=== PATIENT | male | born 1940 | race Caucasian/White ===

== ENCOUNTER 2016-04-28 15:11 | Emergency (ER) | payer MEDICARE, OTHER ==
[2016-04-28 15:11] LABS: BASOPHILS 0.7 %; BASOPHILS ABSOLUTE 0.04 10/3/uL (0.0-0.16); EOSINOPHILS ABSOLUTE 0.12 10/3/uL (0.0-0.53); HEMATOCRIT 35.4 % (40.0-51.0); HEMOGLOBIN 11.2 g/dL (13.6-17.8); IMMATURE GRANULOCYTES 0.3 %; IMMATURE GRANULOCYTES ABSOLUTE 0.02 10/3/uL (0.0-0.11); LYMPHOCYTES ABSOLUTE 1.43 10/3/uL (0.67-4.30); MEAN CORPUS HGB CONC 31.6 g/dL (32.0-36.0); MEAN CORPUSCULAR HEMOGLOB 23.9 pg (26.0-34.0); MEAN CORPUSCULAR VOLUME 75.5 fL (80-100); MEAN PLATELET VOLUME 8.6 fL (9.2-13.0); MONOCYTES 12.1 %; MONOCYTES ABSOLUTE 0.72 10/3/uL (0.21-1.20); NEUTROPHILS 60.9 %; NEUTROPHILS ABSOLUTE 3.63 10/3/uL (2.02-8.40); RBC DISTRIBUTION WIDTH 19.7 % (12.0-16.0); RED CELL COUNT 4.69 10/6/uL (4.7-6.1)
[~2016-04-28 15:11] MED LIST: ASAB PO; BEN25 PO; C1 PO; CIPRO (10%) PO; COUMADIN6 MG PO; FISH-EPA1000 MG PO; FLORINEF0.1 MG PO; JANTOVEN PO; JANTOVEN1 MG PO; JANTOVEN4 MG PO; JANTOVEN5 MG PO; JANTOVEN6 MG PO; KDUR20 PO; KLOR-CON 1010 MEQ PO; KLOR-CON M2020 MEQ PO; LEVOTHYROXIN88 MCG PO; LORT7 PO; MAGOX4 PO; MOBIC15 MG PO; NEXIUM40 PO; PERCOCET1 TA2 PO; PREV30 PO; REST15 PO; RYTHMOL SR225 MG PO; RYTHMOL225 MG PO; RYTHMOL300 MG PO; SONATA PO; ZOCOR20 PO; ZOFRAN4 PO
[2016-04-28 15:13] LABS: ER CBC TAT 0 Hrs 05 MinsNP; MANUAL DIFF NO %; PLATELET COUNT 336 10/3/uL (150-400)
[2016-04-28 15:26] LABS: CALCIUM, SERUM 8.9 MG/DL (8.5-10.4); CHLORIDE, SERUM 101 MMOL/L (96-112); CO2 (CARBON DIOXIDE) 28 MMOL/L (24-34); CREATININE 0.93 MG/DL (0.70-1.30); GFR AFRICAN AMERICAN 94 ML/MIN (>=60); GFR NON AFRICAN AMERICAN 81 ML/MIN (>=60); GLUCOSE, SERUM 104 MG/DL (60-99); POTASSIUM, SERUM 4.7 MMOL/L (3.5-5.3); SGOT(AST) 21 U/L (5-40); SGPT(ALT) 26 U/L (5-65); SODIUM, SERUM 138 MMOL/L (135-148); TOTAL BILIRUBIN 0.6 MG/DL (0-1.2); TOTAL PROTEIN 7.7 G/DL (6.0-8.5)
[2016-04-28 15:27] LABS: A/G RATIO 0.6 (0.7-1.9); ALBUMIN 2.9 G/DL (3.5-5.0); ALKALINE PHOSPHATASE 85 U/L (45-117); BUN (BLOOD UREA NITROGEN) 11 MG/DL (6-23); GLOBULIN 4.8 G/DL (2.5-4.1)
[2016-04-28 16:05] LABS: LACTATE 0.8 MMOL/L (0.3-2.4)
[2016-04-28 17:09] LABS: ASCORBIC ACID (UR NOT ORDER) NEG (NEG); BILIRUBIN, URINE NEGATIVE (NEG); ER URINALYSIS TAT 0 Hrs 07 Mins; KETONE, URINE NEGATIVE (NEG); LEUKOCYTE ESTERASE(NOT OR NEG (NEG); NITRITE (URINE) NEG (NEG); WBC (NOT ORDERED) (RFLEX) 4 (0-5)
[2016-06-07] MEDS ORDERED: ROXICODONE IR PO (11:25)
== END 2016-04-28 17:40 | disposition home or self-care (01) ==
LOC: ER 15:11
PROVIDERS: Nurse Practitioner
DX: M54.9 Dorsalgia, unspecified (principal); I48.91 Unspecified atrial fibrillation; Z88.8 Allergy status to other drugs, medicaments and biological substances; Z79.899 Other long term (current) drug therapy; Z79.82 Long term (current) use of aspirin
CPT/HCPCS: 74176; 80053; 81001; 83605; 83690; 85025; 87040; 99284; A9270-GY

== ENCOUNTER 2016-05-16 23:00 | Inpatient (IN) | payer MEDICARE, OTHER ==
--- NOTE | ~2016-05-16 | CN ---
Consultation Report [facility] [address] [place]. [address] NAME: MAGGIE REDMAN : 44 STATUS : ADM IN PAT#: [id number] AGE: 75 ADM/REG DATE : 05/17/16 MR#: [id number] REPORT SERV DATE: 05/17/16 DICTATED BY: NIELS CARPENTER DATE: 05/17/16 REPORT STATUS : Draft TRANSCRIBED BY: MODL DATE: 05/17/16 INFECTIOUS DISEASE CONSULT DATE OF CONSULTATION: REASON FOR REFERRAL: Evaluation and treatment of spinal osteomyelitis/discitis. HISTORY OF PRESENT ILLNESS: The patient is a 75-year-old male. He has a history of atrial fibrillation, benign prostatic hypertrophy. He had a carcinoid tumor diagnosed in 2006, underwent partial gastrectomy, and small bowel resection. That surgery was complicated later by incisional hernias that required extensive surgery to repair several years ago but has been stable the patient says for the last 4 years without any signs of infection. He also has obstructive sleep apnea and hypothyroidism. About 6 weeks ago, he developed some discomfort in his back and fevers to 103-104 degrees. He was seen by Dr. Wayne who happens to be his neighbor and found to have urinary tract infection with E. coli. He received antibiotics for that and improved and the fever resolved and has never gone that high again. He continued though whenever he was off antibiotics to have pain, dysuria, and received several more courses of antibiotics. After several weeks of pain began to focus in his thoracic spine area became increasingly severe so that Dr. Wayne ordered an MRI of his spine last week which revealed changes in the T8-T9 level suspicious for discitis and osteomyelitis with soft tissue paravertebral thickening. He was discussed by phone with Infectious Disease at the end of last week and it was recommended that oral antibiotics be stopped and that was done on , 05/12. He was scheduled to see me in the office yesterday to arrange a biopsy off antibiotics but there was some misunderstanding about the appointment and he decided to come to the emergency room anyway where he was given doses of vancomycin and Zosyn. He is not febrile, above 99 at present. White blood cell count is normal. He has some mild increased urinary frequency and change in the smell of his urine but no earl dysuria. No blood in his urine. He has not had any signs or symptoms of infection elsewhere in recent months. There have been no skin lesions or boils. No respiratory infections. No gastrointestinal infections. [place] [facility]. He has not traveled. No unusual animal exposure, travel or other unusual environmental exposures. PAST MEDICAL HISTORY: Otherwise unremarkable. MEDICATIONS: He has received several course of antibiotics. Most recently, cefuroxime and then received vancomycin and Zosyn in the emergency room last night. ALLERGIES: HE HAS NO KNOWN ANTIMICROBIAL ALLERGIES. 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 HE DOES NOT SMOKE. HAS NO HISTORY OF ALCOHOL OR SUBSTANCE ABUSE. HE IS . FAMILY HISTORY: Coronary artery disease in both parents. Consultation Report [address] [place]. [address] NAME: MAGGIE REDMAN : 44 STATUS : ADM IN [facility]#: [id number] AGE: 75 ADM/REG DATE : 05/17/16 MR#: [id number] REPORT SERV DATE: 05/17/16 DICTATED BY: NIELS CARPENTER DATE: 05/17/16 REPORT STATUS : Draft TRANSCRIBED BY: LUIS ENRIQUE DATE: 05/17/16 PHYSICAL EXAMINATION: GENERAL: Nontoxic, elderly male, in no acute distress. He is alert and oriented x3. VITAL SIGNS: His temperature is 98.3, pulse 61, respirations 16, blood pressure 126/62, weight 102 kg. HEENT: Sclerae are clear. No oral lesions. NECK: Supple. LUNGS: Clear. HEART: Irregular. ABDOMEN: Soft, nontender. Positive bowel sounds. Wounds there are well healed. No masses other than some fullness from scar tissue in the upper part of the abdomen from the hernia repair. EXTREMITIES: Without clubbing, cyanosis, or edema. No swollen, red, or hot joints. No skin lesions or rashes. LABORATORY DATA: White blood cell count 7.4, hematocrit 37.9, platelets 259. His BUN and creatinine 12 and 0.94. Liver function tests within normal limits except alkaline phosphatase slightly high at 119. His procalcitonin 0.10 and urinalysis shows large leukocyte esterase, greater than 182 white blood cells. Culture of blood and urine are pending. IMPRESSION: 1. 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 2. Recurrent urinary tract infection probably related to prostate disease. RECOMMENDATIONS: 1. Hold antibiotics at the moment to increase the yield of biopsy unless he begins to spike fevers or becomes toxic appearing, at which point, we will have to restart them. 2. Schedule by tomorrow if possible a CT-guided biopsy. He is on Coumadin for his atrial fibrillation. Finally, I will follow the patient with you. I appreciate very much your consulting on this patient. CHEMA/LUIS ENRIQUE Niels Carpenter M.D. / [id number] CC: MD Melanie Streeter M.D. Consultation Report [address] [place]. [address] NAME: MAGGIE REDMAN : 44 STATUS : ADM IN PAT#: [id number] AGE: 75 ADM/REG DATE : 05/17/16 MR#: [id number] REPORT SERV DATE: 05/17/16 DICTATED BY: NIELS CARPENTER DATE: 05/17/16 REPORT STATUS : Draft TRANSCRIBED BY: LUIS ENRIQUE DATE: 05/17/16 Hermelindo Wayne Jr., M.D.
--- NOTE | ~2016-05-16 | DS ---
Discharge Summary [place] [address] [address] NAME: MAGGIE REDMAN : 42 STATUS : DIS IN PAT#: [id number] AGE: 75 ADM/REG DATE : 05/17/16 MR#: [id number] REPORT SERV DATE: 07/14/16 DICTATED BY: DATE: REPORT STATUS : Draft TRANSCRIBED BY: MODL DATE: 07/13/16 ADMISSION DATE: 05/17/2016 DISCHARGE DATE: 05/23/2016 Please see interim discharge summary dictated on 05/22/2016, job #[id number]. Addendum: The patient's discharge was not accomplished until 05/23/2016 due to inability to be able to obtain his home antibiotics for his E. coli bacteremia and his spinal osteomyelitis as well as his recurrent UTI. [facility]/SAQIB[facility] Zeina Singh NP / [id number] CC: MD Melanie Guevara M.D.
--- NOTE | ~2016-05-16 | IDS ---
Interim Discharge Summary [facility] [address] [place]. [address] NAME: MAGGIE REDMAN : 44 STATUS : DIS IN PAT#: [id number] AGE: 75 ADM/REG DATE : 05/17/16 MR#: [id number] REPORT SERV DATE: 05/24/16 DICTATED BY: DATE: REPORT STATUS : Draft TRANSCRIBED BY: MODL DATE: 05/22/16 ADMISSION DATE: 05/17/2016 DISCHARGE DATE: DIAGNOSES: Current interim discharge diagnoses list includes, 1. Spinal osteomyelitis/diskitis. 2. Recurrent urinary tract infection with Escherichia coli. 3. Intractable back pain. 4. Depression. 5. Debility/generalized weakness. 6. Atrial fibrillation. 7. History of deep venous thrombosis. 8. Escherichia coli bacteremia. 9. Cachexia. 10.Hypoalbuminemia. HISTORY OF PRESENT ILLNESS: This is a pleasant 75-year-old gentleman who presented to the ER with complaint of worsening back pain as well as difficulty urinating. The patient has had multiple recurrent episodes of urinary tract infections and been on multiple antibiotics that has been managed as an outpatient through Dr. Wayne's office. The patient developed severe thoracic back pain, which the patient did not relate to his urinary tract infections. Please see initial H and P by Dr. Bobby Rodriguez. PROCEDURES AND IMAGIN. 05/16/2016 CT of the abdomen and pelvis without contrast showed new irregularity and disrupted vertebral endplate cortical margins and significant interval increase in paravertebral soft tissue thickening at the T8-T9 level highly suspicious for diskitis, osteomized pattern. 2. Subsegmental atelectasis in both lung bases. 3. 05/16/2016, portable chest x-ray showed low lung volumes with bibasilar atelectasis and no acute cardiopulmonary abnormality. 4. On 05/19/2016, the patient had a CT-guided biopsy of T8-T9 soft tissue lesion in Interventional Radiology. CONTINUATION OF HOSPITAL COURSE: Consultants during this time have been Dr. Enio Zhang and Interventional Radiology was Dr. Sprague. The patient has come back with E. coli in his urine as well as his back and has one positive blood culture. The patient has been having intractable back pain for which he is receiving ketorolac as well as p.r.n. pain medications. We have encouraged the patient to increase his out of bed activity. The patient finds extremely painful to sit in the chair despite padding and spends most of his time in the bed. This has been discussed with the patient as well as the patient's depressed affect. The patient desires no medications for this at this time. He lays in bed with the TV off and his blinds drawn. The patient has generalized weakness and debility and PT and OT have been asked to evaluate and treat him. The patient has intermittent AFib for which he is on Coumadin. His Coumadin had to be stopped prior to having his biopsy and a unit of FFP had to be given to try to reduce his INR. His subsequent INR was 1.6. The Interim Discharge Summary [facility] [address] [place] [place]. [address] NAME: MAGGIE REDMAN : 44 STATUS : DIS IN PAT#: [id number] AGE: 75 ADM/REG DATE : 05/17/16 MR#: [id number] REPORT SERV DATE: 05/24/16 DICTATED BY: DATE: REPORT STATUS : Draft TRANSCRIBED BY: MODL DATE: 05/22/16 patient has received Coumadin 5 mg for the last two nights and his current INR today is 1.7. The patient has been started on Megace due to his poor appetite. The patient refuses his Ensure or any other liquid supplement that his family might bring in. The patient has been encouraged to eat peanut butter and I have changed him to a high-protein diet. Dr. Zhang has add the patient on ceftriaxone until today when he has changed him to IV Merrem. The patient's most recent labs sodium is 137, potassium is 3.8, chloride is 102, BUN is 13, creatinine is 0.74, GFR is 92, glucose is 95. Calcium is 9.3, magnesium is 1.9. WBC is 5.7, hemoglobin 10.3, hematocrit 30.5, platelets are 217. INR is 1.7. ADDENDUM: The patient will be discharged home on ertapenem per Infectious Disease's for his E coli bacteremia and spinal osteomyelitis as well as recurrent UTI. The patient is being given a prescription for Megace 625 mg p.o. as well as [place] 7.5/325 mg q.4 hours p.r.n. x2 days. Additional prescriptions being given for Florastor one b.i.d. and the patient is to follow up for PCP for pain control within the next two days. The patient will also be following up with Dr. Zhang on 06/06/2016 or 06/07/2016. It was extensively discussed with the patient about the possible onset of depression due to his chronic pain, patient refused psych consult here. Symptoms of impending depression were reviewed with the patient and the patient promised to discuss with PCP at first appointment. Approximately 40 minutes has been spent compiling discharge summary as well as [id number] encounter with the patient and summarization of the discharge. [facility]/MODL Zeina Singh NP / [id number] / [id number] CC: Brandon Pacheco MD
--- NOTE | ~2016-05-16 | HP ---
History And Physical [place] [id number] [facility] [place]. [address] NAME: MAGGIE LAUREN : 42 STATUS : ADM IN PAT#: [id number] AGE: 75 ADM/REG DATE : 05/17/16 MR#: [id number] REPORT SERV DATE: 05/17/16 DICTATED BY: KENYETTA FERNANDES DATE: 05/17/16 REPORT STATUS : Draft TRANSCRIBED BY: MODL DATE: 05/17/16 DATE OF ADMISSION: 05/16/2016 POINT OF ENTRY: [facility] Emergency Department. PRIMARY CARE PHYSICIAN: Melanie Raygoza M.D. PRIMARY UROLOGIST: Hermelindo Wayne M.D. CHIEF COMPLAINT: Worsening back pain as well as dysuria. HISTORY OF PRESENT ILLNESS: Mr. Lauren is a 75-year-old gentleman with a history of atrial fibrillation on Coumadin and anticoagulation as well as BPH, who presents to the emergency today with reports of worsening lower back pain with associated dysuria. The patient states that over the last six weeks, he has had recurrent episodes of urinary tract infections and placed on multiple courses of antibiotics. This was mainly being managed as an outpatient through Dr. Wayne's office. About four weeks ago, he started to develop severe thoracic level back pain, which initially I think was felt to be secondary to urinary tract infections. The patient has multiple CT scans of the abdomen and pelvis in our system over the last month all of which were unremarkable for source of his back pain, but was notable for some BPH as well as cholelithiasis. The patient reportedly underwent gallbladder imaging through Dr. Carmina good, which again showed cholelithiasis with no indication for need for surgical resection or cholecystitis. Given persistent back pain as well as fevers, despite multiple courses of oral antibiotics for presumed urinary tract infection, the patient underwent MRI of the spine at an outpatient center, presumed to be [facility] [place]. That reportedly showed an infection of the spine, details of which are unknown to me. Dr. Wayne reportedly consulted with Dr. Austin of Infectious Disease and it was felt that the patient needed to be off antibiotics for few days prior to scheduling of a CT-guided biopsy. The patient states he has been off antibiotics since middle of last week as instructed by Dr. Wayne, but has not been taken off his Coumadin. The family is under the understanding that he was to have his CT-guided biopsy today; however, no formal appointment was scheduled and when they tried to reach with Dr. Wayne as well as Dr. Austin, they were not able to reach both of them as they reportedly were both on vacation or out of town. Given his worsening pain and inability to reach any of his primary doctors, he presented to the emergency department. Family states he had some very high spiking fevers of 103-104 degrees Fahrenheit about greater than one week ago, but over the last week, he has had much milder fevers approximately 99-100 degrees Fahrenheit. He describes burning with urination as well as odor as well as the above-mentioned back pain. The patient also describes some subjective weakness of his lower extremities as well as some difficulty walking and standing up completely straight secondary to the pain as well as weakness. He denies any urinary or bowel incontinence or loss of sensation of his lower extremities. Initial evaluation in the emergency department for CT scan of the abdomen and pelvis showed History And Physical [address] [address] NAME: MAGGIE LAUREN : 44 STATUS : ADM IN [facility] WITH [facility]#: [id number] AGE: 75 ADM/REG DATE : 05/17/16 MR#: [id number] REPORT SERV DATE: 05/17/16 DICTATED BY: KENYETTA FERNANDES DATE: 05/17/16 REPORT STATUS : Draft TRANSCRIBED BY: LUIS ENRIQUE DATE: 05/17/16 new irregularity and disrupted vertebral endplate cortical margins as well as some paravertebral soft tissue thickening concerning for diskitis versus osteomyelitis. Labs otherwise unremarkable except for an INR of 2.3 and urinalysis consistent with urinary tract infection. The patient was subsequently admitted to the Hospitalist Service for further evaluation and management. REVIEW OF SYSTEMS: Comprehensive review of systems otherwise negative unless listed in history of present illness. PREVIOUS MEDICAL HISTORY: 1. Carcinoid tumor, status post partial gastric and small-bowel resection. 2. Ventral incisional hernia, status post repair. 3. Obstructive sleep apnea, noncompliant with CPAP therapy. 4. Hypothyroidism. 5. Atrial fibrillation on Coumadin. 6. Remote history of DVT on Coumadin. 7. BPH. 8. Symptomatic cholelithiasis. 9. Coronary atherosclerosis per CT imaging. PAST SURGICAL HISTORY: 1. Partial gastric and small bowel resection for carcinoid tumor. 2. Ventral incisional hernia repair x3. ALLERGIES: LIDOCAINE, MORPHINE, AND PROCAINE. HOME MEDICATIONS: 1. Aspirin 81 mg daily. 2. Nexium 20 mg daily. 3. Ketorolac 10 mg every six hours p.r.n. 4. Levothyroxine 88 mcg daily. 5. Lidocaine topical patch daily p.r.n. 6. Magnesium oxide 400 mg b.i.d. 7. Potassium chloride 10 mEq b.i.d. 8. Rythmol 225 mg t.i.d. 9. Simvastatin 20 mg at bedtime. 10.Flomax 0.4 mg daily. 11.Temazepam 15 mg at bedtime. 12.Ultram 50 mg every six hours. 13.Jantoven 5 mg q.p.m. SOCIAL HISTORY: Denies any tobacco, alcohol, or illicits. FAMILY HISTORY: Both parents had coronary artery disease. Sibling with history of cancer, type unknown. History And Physical [address] [address] NAME: MAGGIE LAUREN : 42 STATUS : ADM IN [facility] WITH [facility]#: [id number] AGE: 75 ADM/REG DATE : 05/17/16 MR#: [id number] REPORT SERV DATE: 05/17/16 DICTATED BY: KENYETTA FERNANDES DATE: 05/17/16 REPORT STATUS : Draft TRANSCRIBED BY: LUIS ENRIQUE DATE: 05/17/16 LABS AND IMAGIN. White count 7.4, hemoglobin 12.8, hematocrit 37.9, platelets 259. INR is 2.3. MCV 74.3. 2. Sodium is 131, potassium 4.6, chloride 94, carbon dioxide 28, BUN 12, creatinine 0.94, glucose is 103, calcium is 9.0, protein is 7.9, albumin is 2.8, bili is 0.5. ALT is 20, AST 21, alk phos is 119. 3. Lipase is 111. 4. Lactic acid 0.9. 5. Urinalysis: Specific gravity 1.016 hazy with large leukocyte esterase, positive nitrites, 9 red and greater than 182 white blood cells per high-powered field. 6. Chest x-ray per my review shows no acute cardiopulmonary abnormality. 7. CT scan of the abdomen and pelvis shows a new irregularity and disrupted vertebral endplate cortical margins as well as paravertebral soft tissue thickening in the T8-T9 level concerning for osteomyelitis versus diskitis. PHYSICAL EXAMINATION: VITAL SIGNS: Temperature is 98.2 degrees Fahrenheit, pulse is 70, respirations 16, satting 96% on room air, blood pressure is 116/68. On recheck, blood pressure is now 120/68. GENERAL: The patient is awake, alert, in no acute distress. Resting comfortably in bed. He is a well-developed, well-nourished, elderly male. HEENT: Atraumatic and normocephalic. Moist mucous membranes. Pupils are equal, round, reactive to light and accommodation. Extraocular movements intact. No scleral icterus. NECK: No jugular venous distention. No carotid bruits. CARDIAC: Regular rate and rhythm. No murmurs, rubs, or gallops. Normal S1, S2. LUNGS: Clear to auscultation bilaterally. No wheezes, rhonchi, or crackles. ABDOMEN: Obese, soft, nontender, nondistended. Good bowel sounds. No rebound, guarding, or rigidity. EXTREMITIES: Warm and perfused. No cyanosis, clubbing, or edema. MUSCULOSKELETAL: The patient is mildly tender to palpation over the spinous processes as well as paravertebral regions of his mid upper thoracic region. No palpable fluid collections appreciated. SKIN: Warm and dry except for noted above. PSYCHIATRIC: Affect appropriate. NEUROLOGIC: Alert and oriented x3. Cranial nerves II through XII grossly intact. Speech is normal. Gait not assessed. The patient has a 4/5 strength at bilateral lower extremities with intact sensation. I think his strength is primarily limited by pain. ASSESSMENT AND PLAN: Mr. Lauren is a 75-year-old gentleman with a recent diagnosis as an outpatient of spinal osteomyelitis versus diskitis, who is currently on antibiotic holiday in anticipation of an outpatient CT-guided biopsy, who presents with worsening pain as well as weakness and concern for recurrent urinary tract infection. PROBLEM LIST: 1. Recurrent urinary tract infection. 2. Spinal thoracic osteomyelitis versus diskitis. 3. Intractable back pain. 4. History of AFib and DVT on Coumadin. History And Physical [address] [address] NAME: MAGGIE LAUREN : 44 STATUS : ADM IN [facility] WITH [facility]#: [id number] AGE: 75 ADM/REG DATE : 05/17/16 MR#: [id number] REPORT SERV DATE: 05/17/16 DICTATED BY: KENYETTA FERNANDES DATE: 05/17/16 REPORT STATUS : Draft TRANSCRIBED BY: MODAnna Marie DATE: 05/17/16 PLAN: 1. Spinal thoracic osteomyelitis versus diskitis. We will consult Dr. Austin of Infectious Disease for assistance. It appears that he is already familiar with the case through Dr. Wayne. We will try to obtain the MRI results from [facility] that was obtained less than a week ago and as such, we will defer on repeat MRI imaging at this time. Given reports of worsening pain and weakness, the new CT findings compared to the prior CT as well as reports of fevers over the past week, I will empirically place the patient on antibiotics of vancomycin and Zosyn and defer further antibiotic management to Infectious Disease. There does not appear to be any neurologic compromise both the imaging or on clinical exam at this time. 2. Recurrent urinary tract infection. We will place the patient on IV antibiotics. Follow up urine culture. Of note, he does have some E. coli urine cultures from earlier this year that appears to have intermittent resistance to Unasyn as well as some resistance to other antibiotics. So therefore, we will place the patient on Zosyn at this time. 3. Back pain. Continue the patient's home tramadol as well as lidocaine topical patch. Place the patient on some low-dose Dilaudid for pain control. 4. History of DVT and AFib on Coumadin. The patient's DVT was many years ago. It appears that his AFib is for stroke, risk reduction for his AFib. We will hold his Coumadin overnight in anticipation of possible CT-guided biopsy in the next few days. 5. DVT prophylaxis. The patient is currently therapeutically anticoagulated. CODE STATUS: The patient wished to be full code. JCB/LUIS ENRIQUE Kenyetta Fernandes MD / [id number] CC: Tim Sanders Jr., M.D.
[2016-05-16 23:41] LABS: BASOPHILS 0.1 %; BASOPHILS ABSOLUTE 0.01 10/3/uL (0.0-0.16); EOSINOPHILS 0.7 %; EOSINOPHILS ABSOLUTE 0.05 10/3/uL (0.0-0.53); ER CBC TAT 0 Hrs 05 Mins; HEMATOCRIT 37.9 % (40.0-51.0); HEMOGLOBIN 12.8 g/dL (13.6-17.8); IMMATURE GRANULOCYTES 0.7 %; IMMATURE GRANULOCYTES ABSOLUTE 0.05 10/3/uL (0.0-0.11); LYMPHOCYTES 16.7 %; LYMPHOCYTES ABSOLUTE 1.23 10/3/uL (0.67-4.30); MEAN CORPUSCULAR HEMOGLOB 25.1 pg (26.0-34.0); MEAN CORPUSCULAR VOLUME 74.3 fL (80-100); MEAN PLATELET VOLUME 8.2 fL (9.2-13.0); MONOCYTES 9.9 %; MONOCYTES ABSOLUTE 0.73 10/3/uL (0.21-1.20); NEUTROPHILS 71.9 %; NEUTROPHILS ABSOLUTE 5.31 10/3/uL (2.02-8.40); PLATELET COUNT 259 10/3/uL (150-400); RBC DISTRIBUTION WIDTH 17.8 % (12.0-16.0); WHITE BLOOD CELLS 7.4 10/3/uL (4.5-10.5)
[2016-05-16 23:44] LABS: ASCORBIC ACID (UR NOT ORDER) NEG (NEG); BILIRUBIN, URINE NEGATIVE (NEG); ER URINALYSIS TAT 0 Hrs 00 Mins; KETONE, URINE NEGATIVE (NEG); LEUKOCYTE ESTERASE(NOT OR LARGE (NEG)
[2016-05-16 23:47] LABS: NITRITE (URINE) POS (NEG); WBC (NOT ORDERED) (RFLEX) > 182 (0-5)
[2016-05-16 23:48] LABS: MANUAL DIFF NO %; MEAN CORPUS HGB CONC 33.8 g/dL (32.0-36.0)
[2016-05-16 23:55] LABS: A/G RATIO 0.5 (0.7-1.9); ALBUMIN 2.8 G/DL (3.5-5.0); BUN (BLOOD UREA NITROGEN) 12 MG/DL (6-23); CHLORIDE, SERUM 94 MMOL/L (96-112); CO2 (CARBON DIOXIDE) 28 MMOL/L (24-34); CREATININE 0.94 MG/DL (0.70-1.30); GFR AFRICAN AMERICAN 93 ML/MIN (>=60); GFR NON AFRICAN AMERICAN 80 ML/MIN (>=60); GLOBULIN 5.1 G/DL (2.5-4.1); GLUCOSE, SERUM 103 MG/DL (60-99); INTERNATIONAL NORMAL RATI 2.3 UNITS (-); PARTIAL THROMBO TIME 55.9 SEC (22.5-37.2); POTASSIUM, SERUM 4.6 MMOL/L (3.5-5.3); SGOT(AST) 21 U/L (5-40); SGPT(ALT) 28 U/L (5-65); TOTAL BILIRUBIN 0.5 MG/DL (0-1.2); TOTAL PROTEIN 7.9 G/DL (6.0-8.5)
[2016-05-16 23:56] LABS: ALKALINE PHOSPHATASE 119 U/L (45-117); PROTIME (NOT ORD) 24.9 SEC (12.0-14.5); SODIUM, SERUM 131 MMOL/L (135-148)
[2016-05-17 00:07] LABS: LACTATE 0.9 MMOL/L (0.3-2.4)
[2016-05-17] MEDS ORDERED: JANTOVEN5 MG PO (01:37)
[2016-05-17] MEDS ORDERED: RYTHMOL225 MG PO (01:38)
[2016-05-17] MEDS ORDERED: SYN88 PO (01:38)
[2016-05-17] MEDS ORDERED: ZOCOR20 PO (01:39)
[2016-05-17] MEDS ORDERED: MAGOX4 PO (01:40)
[2016-05-17] MEDS ORDERED: KDUR10 PO (01:42)
[2016-05-17] MEDS ORDERED: NEXIUM20 M1 PO (01:43)
[2016-05-17] MEDS ORDERED: ASAB PO (01:43)
[2016-05-17] MEDS ORDERED: REST15 PO (01:43)
[2016-05-17] MEDS ORDERED: TORATAB PO (01:46)
[2016-05-17] MEDS ORDERED: LIDODERM TOP (01:47)
[2016-05-17] MEDS ORDERED: ULTRAM50 PO (01:47)
[2016-05-17] MEDS ORDERED: FLOMAX4 PO (01:49)
[2016-05-17 08:11] LABS: C-REACTIVE PROTEIN 36.8 MG/L (<8.0)
[2016-05-18 06:06] LABS: BASOPHILS 0.3 %; BASOPHILS ABSOLUTE 0.02 10/3/uL (0.0-0.16); EOSINOPHILS 1.3 %; HEMATOCRIT 35.9 % (40.0-51.0); HEMOGLOBIN 11.6 g/dL (13.6-17.8); IMMATURE GRANULOCYTES 0.5 %; IMMATURE GRANULOCYTES ABSOLUTE 0.04 10/3/uL (0.0-0.11); LYMPHOCYTES 14.8 %; LYMPHOCYTES ABSOLUTE 1.18 10/3/uL (0.67-4.30); MANUAL DIFF NO %; MEAN CORPUS HGB CONC 32.3 g/dL (32.0-36.0); MEAN CORPUSCULAR HEMOGLOB 24.4 pg (26.0-34.0); MEAN CORPUSCULAR VOLUME 75.6 fL (80-100); MEAN PLATELET VOLUME 8.4 fL (9.2-13.0); MONOCYTES 9.4 %; MONOCYTES ABSOLUTE 0.75 10/3/uL (0.21-1.20); NEUTROPHILS 73.7 %; NEUTROPHILS ABSOLUTE 5.89 10/3/uL (2.02-8.40); PLATELET COUNT 247 10/3/uL (150-400); RED CELL COUNT 4.75 10/6/uL (4.7-6.1)
[2016-05-18 06:11] LABS: PROTIME (NOT ORD) 22.7 SEC (12.0-14.5)
[2016-05-18 06:19] LABS: BUN (BLOOD UREA NITROGEN) 12 MG/DL (6-23); CHLORIDE, SERUM 95 MMOL/L (96-112); CO2 (CARBON DIOXIDE) 28 MMOL/L (24-34); CREATININE 0.86 MG/DL (0.70-1.30); GFR AFRICAN AMERICAN 100 ML/MIN (>=60); GFR NON AFRICAN AMERICAN 86 ML/MIN (>=60); POTASSIUM, SERUM 4.4 MMOL/L (3.5-5.3); SODIUM, SERUM 132 MMOL/L (135-148)
[2016-05-18 06:20] LABS: GLUCOSE, SERUM 78 MG/DL (60-99)
[2016-05-18 13:10] LABS: INTERNATIONAL NORMAL RATI 1.8 UNITS (-); PROTIME (NOT ORD) 20.5 SEC (12.0-14.5)
[2016-05-19 05:12] LABS: BASOPHILS 0.3 %; BASOPHILS ABSOLUTE 0.02 10/3/uL (0.0-0.16); EOSINOPHILS 0.5 %; EOSINOPHILS ABSOLUTE 0.04 10/3/uL (0.0-0.53); HEMATOCRIT 32.9 % (40.0-51.0); HEMOGLOBIN 10.8 g/dL (13.6-17.8); IMMATURE GRANULOCYTES 0.4 %; IMMATURE GRANULOCYTES ABSOLUTE 0.03 10/3/uL (0.0-0.11); LYMPHOCYTES 17.1 %; LYMPHOCYTES ABSOLUTE 1.27 10/3/uL (0.67-4.30); MEAN CORPUS HGB CONC 32.8 g/dL (32.0-36.0); MEAN CORPUSCULAR HEMOGLOB 24.3 pg (26.0-34.0); MEAN CORPUSCULAR VOLUME 74.1 fL (80-100); MEAN PLATELET VOLUME 8.2 fL (9.2-13.0); MONOCYTES 10.1 %; MONOCYTES ABSOLUTE 0.75 10/3/uL (0.21-1.20); NEUTROPHILS 71.6 %; PLATELET COUNT 212 10/3/uL (150-400); RBC DISTRIBUTION WIDTH 17.9 % (12.0-16.0); RED CELL COUNT 4.44 10/6/uL (4.7-6.1); WHITE BLOOD CELLS 7.4 10/3/uL (4.5-10.5)
[2016-05-19 05:15] LABS: MANUAL DIFF NO %
[2016-05-19 05:26] LABS: BUN (BLOOD UREA NITROGEN) 14 MG/DL (6-23); CHLORIDE, SERUM 94 MMOL/L (96-112); CREATININE 0.83 MG/DL (0.70-1.30); GFR AFRICAN AMERICAN 101 ML/MIN (>=60); GFR NON AFRICAN AMERICAN 87 ML/MIN (>=60); GLUCOSE, SERUM 92 MG/DL (60-99); POTASSIUM, SERUM 3.9 MMOL/L (3.5-5.3); SODIUM, SERUM 129 MMOL/L (135-148)
[2016-05-19 05:27] LABS: CO2 (CARBON DIOXIDE) 23 MMOL/L (24-34)
[2016-05-19 05:31] LABS: INTERNATIONAL NORMAL RATI 1.6 UNITS (-)
[2016-05-20 04:50] LABS: BASOPHILS 0.3 %; BASOPHILS ABSOLUTE 0.02 10/3/uL (0.0-0.16); EOSINOPHILS ABSOLUTE 0.06 10/3/uL (0.0-0.53); HEMATOCRIT 31.4 % (40.0-51.0); HEMOGLOBIN 10.6 g/dL (13.6-17.8); IMMATURE GRANULOCYTES 0.5 %; IMMATURE GRANULOCYTES ABSOLUTE 0.03 10/3/uL (0.0-0.11); LYMPHOCYTES 22.4 %; LYMPHOCYTES ABSOLUTE 1.29 10/3/uL (0.67-4.30); MEAN CORPUS HGB CONC 33.8 g/dL (32.0-36.0); MEAN CORPUSCULAR HEMOGLOB 25.4 pg (26.0-34.0); MEAN CORPUSCULAR VOLUME 75.3 fL (80-100); MEAN PLATELET VOLUME 8.2 fL (9.2-13.0); MONOCYTES 13.4 %; MONOCYTES ABSOLUTE 0.77 10/3/uL (0.21-1.20); NEUTROPHILS 62.4 %; NEUTROPHILS ABSOLUTE 3.58 10/3/uL (2.02-8.40); PLATELET COUNT 214 10/3/uL (150-400); RBC DISTRIBUTION WIDTH 18.1 % (12.0-16.0); RED CELL COUNT 4.17 10/6/uL (4.7-6.1); WHITE BLOOD CELLS 5.8 10/3/uL (4.5-10.5)
[2016-05-20 04:51] LABS: MANUAL DIFF NO %
[2016-05-20 04:56] LABS: INTERNATIONAL NORMAL RATI 1.5 UNITS (-); PROTIME (NOT ORD) 18.4 SEC (12.0-14.5)
[2016-05-20 05:00] LABS: BUN (BLOOD UREA NITROGEN) 15 MG/DL (6-23); CHLORIDE, SERUM 97 MMOL/L (96-112); CO2 (CARBON DIOXIDE) 27 MMOL/L (24-34); CREATININE 0.86 MG/DL (0.70-1.30); GFR AFRICAN AMERICAN 100 ML/MIN (>=60); GFR NON AFRICAN AMERICAN 86 ML/MIN (>=60); GLUCOSE, SERUM 87 MG/DL (60-99); POTASSIUM, SERUM 3.8 MMOL/L (3.5-5.3); SODIUM, SERUM 133 MMOL/L (135-148)
[2016-05-21 06:24] LABS: BASOPHILS 0.2 %; BASOPHILS ABSOLUTE 0.01 10/3/uL (0.0-0.16); EOSINOPHILS 2.7 %; EOSINOPHILS ABSOLUTE 0.14 10/3/uL (0.0-0.53); HEMATOCRIT 31.5 % (40.0-51.0); HEMOGLOBIN 10.3 g/dL (13.6-17.8); IMMATURE GRANULOCYTES 0.6 %; IMMATURE GRANULOCYTES ABSOLUTE 0.03 10/3/uL (0.0-0.11); INTERNATIONAL NORMAL RATI 1.6 UNITS (-); LYMPHOCYTES 23.1 %; LYMPHOCYTES ABSOLUTE 1.18 10/3/uL (0.67-4.30); MEAN CORPUS HGB CONC 32.7 g/dL (32.0-36.0); MEAN CORPUSCULAR HEMOGLOB 24.1 pg (26.0-34.0); MEAN CORPUSCULAR VOLUME 73.6 fL (80-100); MEAN PLATELET VOLUME 8.2 fL (9.2-13.0); MONOCYTES 13.5 %; MONOCYTES ABSOLUTE 0.69 10/3/uL (0.21-1.20); NEUTROPHILS 59.9 %; NEUTROPHILS ABSOLUTE 3.06 10/3/uL (2.02-8.40); PLATELET COUNT 220 10/3/uL (150-400); PROTIME (NOT ORD) 18.9 SEC (12.0-14.5); RBC DISTRIBUTION WIDTH 18.5 % (12.0-16.0); RED CELL COUNT 4.28 10/6/uL (4.7-6.1); WHITE BLOOD CELLS 5.1 10/3/uL (4.5-10.5)
[2016-05-21 06:32] LABS: MANUAL DIFF NO %
[2016-05-21 06:37] LABS: BUN (BLOOD UREA NITROGEN) 13 MG/DL (6-23); CALCIUM, SERUM 7.8 MG/DL (8.5-10.4); CHLORIDE, SERUM 102 MMOL/L (96-112); CO2 (CARBON DIOXIDE) 27 MMOL/L (24-34); CREATININE 0.74 MG/DL (0.70-1.30); GFR AFRICAN AMERICAN 106 ML/MIN (>=60); GFR NON AFRICAN AMERICAN 92 ML/MIN (>=60); GLUCOSE, SERUM 88 MG/DL (60-99); POTASSIUM, SERUM 3.8 MMOL/L (3.5-5.3); SODIUM, SERUM 138 MMOL/L (135-148)
[2016-05-22 06:51] LABS: BASOPHILS 0.4 %; BASOPHILS ABSOLUTE 0.02 10/3/uL (0.0-0.16); EOSINOPHILS 2.5 %; EOSINOPHILS ABSOLUTE 0.14 10/3/uL (0.0-0.53); HEMATOCRIT 30.5 % (40.0-51.0); HEMOGLOBIN 10.3 g/dL (13.6-17.8); IMMATURE GRANULOCYTES 0.4 %; IMMATURE GRANULOCYTES ABSOLUTE 0.02 10/3/uL (0.0-0.11); LYMPHOCYTES 28.2 %; LYMPHOCYTES ABSOLUTE 1.61 10/3/uL (0.67-4.30); MEAN CORPUS HGB CONC 33.8 g/dL (32.0-36.0); MEAN CORPUSCULAR HEMOGLOB 24.6 pg (26.0-34.0); MEAN PLATELET VOLUME 8.2 fL (9.2-13.0); MONOCYTES 9.8 %; MONOCYTES ABSOLUTE 0.56 10/3/uL (0.21-1.20); NEUTROPHILS 58.7 %; NEUTROPHILS ABSOLUTE 3.36 10/3/uL (2.02-8.40); PLATELET COUNT 216 10/3/uL (150-400); RBC DISTRIBUTION WIDTH 18.3 % (12.0-16.0); RED CELL COUNT 4.18 10/6/uL (4.7-6.1); WHITE BLOOD CELLS 5.7 10/3/uL (4.5-10.5)
[2016-05-22 06:57] LABS: INTERNATIONAL NORMAL RATI 1.7 UNITS (-)
[2016-05-22 07:00] LABS: MANUAL DIFF NO %
[2016-05-22 07:06] LABS: BUN (BLOOD UREA NITROGEN) 13 MG/DL (6-23); CALCIUM, SERUM 8.3 MG/DL (8.5-10.4); CHLORIDE, SERUM 102 MMOL/L (96-112); CO2 (CARBON DIOXIDE) 28 MMOL/L (24-34); CREATININE 0.74 MG/DL (0.70-1.30); GFR AFRICAN AMERICAN 106 ML/MIN (>=60); GFR NON AFRICAN AMERICAN 92 ML/MIN (>=60); GLUCOSE, SERUM 95 MG/DL (60-99); POTASSIUM, SERUM 3.8 MMOL/L (3.5-5.3); SODIUM, SERUM 137 MMOL/L (135-148)
[2016-05-23 06:36] LABS: BASOPHILS 0.3 %; BASOPHILS ABSOLUTE 0.02 10/3/uL (0.0-0.16); EOSINOPHILS 1.5 %; HEMATOCRIT 32.4 % (40.0-51.0); HEMOGLOBIN 10.8 g/dL (13.6-17.8); IMMATURE GRANULOCYTES 0.3 %; IMMATURE GRANULOCYTES ABSOLUTE 0.02 10/3/uL (0.0-0.11); INTERNATIONAL NORMAL RATI 1.8 UNITS (-); LYMPHOCYTES 23.1 %; LYMPHOCYTES ABSOLUTE 1.56 10/3/uL (0.67-4.30); MEAN CORPUS HGB CONC 33.3 g/dL (32.0-36.0); MEAN CORPUSCULAR HEMOGLOB 24.7 pg (26.0-34.0); MEAN CORPUSCULAR VOLUME 74.1 fL (80-100); MEAN PLATELET VOLUME 7.9 fL (9.2-13.0); MONOCYTES 8.8 %; MONOCYTES ABSOLUTE 0.59 10/3/uL (0.21-1.20); NEUTROPHILS ABSOLUTE 4.45 10/3/uL (2.02-8.40); PLATELET COUNT 232 10/3/uL (150-400); PROTIME (NOT ORD) 21.1 SEC (12.0-14.5); RBC DISTRIBUTION WIDTH 18.1 % (12.0-16.0); RED CELL COUNT 4.37 10/6/uL (4.7-6.1); WHITE BLOOD CELLS 6.7 10/3/uL (4.5-10.5)
[2016-05-23 06:37] LABS: MANUAL DIFF NO %
[2016-05-23 06:48] LABS: CALCIUM, SERUM 8.5 MG/DL (8.5-10.4); CHLORIDE, SERUM 99 MMOL/L (96-112); CO2 (CARBON DIOXIDE) 26 MMOL/L (24-34); CREATININE 0.65 MG/DL (0.70-1.30); GFR AFRICAN AMERICAN 112 ML/MIN (>=60); GFR NON AFRICAN AMERICAN 97 ML/MIN (>=60); GLUCOSE, SERUM 99 MG/DL (60-99); POTASSIUM, SERUM 3.7 MMOL/L (3.5-5.3); SODIUM, SERUM 134 MMOL/L (135-148)
[2016-05-23 06:49] LABS: BUN (BLOOD UREA NITROGEN) 9 MG/DL (6-23)
[2016-05-23] MEDS ORDERED: D.O.S.100 MG PO (18:28)
[2016-05-23] MEDS ORDERED: MEGA625UDL PO (18:34)
[2016-05-23] MEDS ORDERED: FLORASTOR250 MG PO (18:36)
[2016-05-23] MEDS ORDERED: INVANZ1 G1 IV (18:37)
[2016-05-23] MEDS ORDERED: NORCO1 TA2 PO (18:39)
[2016-06-07] MEDS ORDERED: ROXICODONE IR PO (11:25)
== END 2016-05-23 19:22 | disposition home health service (06) | DRG 540 ==
LOC: ER 23:00 → 2SO 05-17 02:30
PROVIDERS: Hospitalist; Internal Medicine; Nurse Practitioner Family; Specialist
PROC: 0JB73ZX Excision of Back Subcutaneous Tissue and Fascia, Percutaneous Approach, Diagnostic (ICD-10-PCS; principal; 2016-05-18)
PROC: 30233K1 Transfusion of Nonautologous Frozen Plasma into Peripheral Vein, Percutaneous Approach (ICD-10-PCS; 2016-05-18)
PROC: 05H933Z Insertion of Infusion Device into Right Brachial Vein, Percutaneous Approach (ICD-10-PCS; 2016-05-19)
PROC: 02HV33Z Insertion of Infusion Device into Superior Vena Cava, Percutaneous Approach (ICD-10-PCS; 2016-05-23)
PROC: 4A02X4A Measurement of Cardiac Electrical Activity, Guidance, External Approach (ICD-10-PCS; 2016-05-23)
DX: M46.24 Osteomyelitis of vertebra, thoracic region (principal); N39.0 Urinary tract infection, site not specified; R64 Cachexia; E88.09 Other disorders of plasma-protein metabolism, not elsewhere classified; J98.11 Atelectasis; M46.44 Discitis, unspecified, thoracic region; I48.91 Unspecified atrial fibrillation; G47.33 Obstructive sleep apnea (adult) (pediatric); E03.9 Hypothyroidism, unspecified; N40.0 Benign prostatic hyperplasia without lower urinary tract symptoms; I25.10 Atherosclerotic heart disease of native coronary artery without angina pectoris; K80.20 Calculus of gallbladder without cholecystitis without obstruction; B96.20 Unspecified Escherichia coli [E. coli] as the cause of diseases classified elsewhere; F32.9 Major depressive disorder, single episode, unspecified; Z98.890 Other specified postprocedural states; Z91.19 Patient's noncompliance with other medical treatment and regimen; Z82.49 Family history of ischemic heart disease and other diseases of the circulatory system; Z88.5 Allergy status to narcotic agent; Z88.6 Allergy status to analgesic agent; Z79.01 Long term (current) use of anticoagulants; Z86.718 Personal history of other venous thrombosis and embolism; Z68.28 Body mass index [BMI] 28.0-28.9, adult
CPT/HCPCS: 20206; 36415; 36569; 71010; 74176; 77012; 80048; 80053; 81001; 83605; 83690; 83735; 84145; 85025; 85610; 85652; 85730; 86140; 86850; 86900; 86901; 87015; 87040; 87070; 87075; 87077; 87086; 87102; 87116; 87150; 87186; 87205; 88305; 88341; 88342; 96374; 96375; 96376; 97161-GP; 97165-GO; 99285; A9270-GY; C1751; G8978-CJ-GP; G8979-CJ-GP; G8980-CJ-GP; G8987-CH-GO; G8988-CH-GO; G8989-CH-GO; J1170; J1335; J1956; J2185; J2250; J2405; J2543; J2930; J3010; J3370; P9059

== ENCOUNTER 2016-06-19 17:49 | Inpatient (IN) | payer MEDICARE, OTHER ==
[2016-06-16 16:20] LABS: HEMOGLOBIN 12.4 g/dL (13.6-17.8); MEAN CORPUS HGB CONC 33.4 g/dL (32.0-36.0); MEAN CORPUSCULAR HEMOGLOB 24.8 pg (26.0-34.0); MEAN PLATELET VOLUME 6.9 fL (6.8-10.8); PLATELET COUNT 290 10/3/uL (150-400); RBC DISTRIBUTION WIDTH 18.9 % (12.0-16.0); RED CELL COUNT 5.01 10/6/uL (4.7-6.1)
[2016-06-16 16:24] LABS: HEMATOCRIT 37.1 % (40.0-51.0)
[2016-06-16 16:27] LABS: CALCIUM, SERUM 8.8 MG/DL (8.5-10.4); CHLORIDE, SERUM 99 MMOL/L (96-112); CO2 (CARBON DIOXIDE) 24 MMOL/L (24-34); CREATININE 0.89 MG/DL (0.70-1.30); GFR AFRICAN AMERICAN 98 ML/MIN (>=60); GFR NON AFRICAN AMERICAN 85 ML/MIN (>=60); GLUCOSE, SERUM 124 MG/DL (60-99); POTASSIUM, SERUM 4.3 MMOL/L (3.5-5.3); SODIUM, SERUM 135 MMOL/L (135-148)
[2016-06-16 16:34] LABS: BUN (BLOOD UREA NITROGEN) 15 MG/DL (6-23)
[2016-06-16 17:49] LABS: ASCORBIC ACID (UR NOT ORDER) NEG (NEG); BILIRUBIN, URINE NEGATIVE (NEG); KETONE, URINE TRACE MG/DL (NEG)
--- NOTE | ~2016-06-19 | CN ---
Consultation Report [facility] [address] [place]. [address] NAME: MAGGIE REDMAN : 42 STATUS : ADM IN PAT#: [id number] AGE: 75 ADM/REG DATE : 06/19/16 MR#: [id number] REPORT SERV DATE: 06/22/16 DICTATED BY: KYLE VILLARREAL DATE: 06/22/16 REPORT STATUS : Draft TRANSCRIBED BY: MODL DATE: 06/22/16 CONSULTATION DATE OF CONSULTATION: 06/21/2016 Consultation was done on 06/21/2016, this is supervisor bridges and buildings of 06/22/2016. CHIEF COMPLAINT: Severe mid back pain. HISTORY OF PRESENT ILLNESS: A 75-year-old male who was diagnosed with a urinary tract infection with E coli in early April. He had antibiotics orally but then started developing midback pain. Dr. Hermelindo Wayne ordered an MRI of his spine, which revealed some diskitis and osteomyelitis at that time. He was seen by Dr. Demond Austin. He was supposed to be off antibiotics and have a CT-guided biopsy, but he for reasons that I am not totally sure about, came to the ER and had an admission in mid April, around 05/13/2016 but was given vancomycin and Zosyn. He ultimately did have a CT-guided biopsy of T8-9. He has been on IV antibiotics for the last four weeks, but despite that, his pain has worsened, and he was admitted on 06/19/2016 with more intractable back pain and had some confusion for a few days prior to admission. A new MRI now shows further deterioration of his overall osteomyelitis diskitis. There was more erosion of the bone of T8 and T9. The disk space is completely obliterated and there is some soft tissue extension and swelling. He does not have a large epidural abscess, does have what appears to be possibly some abscess forming in the disk space. He appears to have voided, fever, chills, night sweats, etc. He does have overall generalized increase in pain and progressive weakness overall. He does not have neurologic deficit in the lower extremities. He still has control of bowel and bladder function. I was asked to see with regard to more definitive surgical treatment. PAST MEDICAL HISTORY: Taken from the [facility] per Dr. Elena. PAST SURGICAL HISTORY: Taken from the [facility] per Dr. Elena. CURRENT MEDICATIONS: Taken from the [facility] per Dr. Elena. ALLERGIES: TAKEN FROM THE [facility] PER DR. ELENA. SOCIAL HISTORY: Taken from the [facility] per Dr. Elena. FAMILY HISTORY: Taken from the [facility] per Dr. Elena. PHYSICAL EXAMINATION: GENERAL: He is alert, cooperative. He is well oriented. He did not appear to be toxic. His family is at the bedside including the , the daughter, and the son-in-law as well as a sister. NEUROLOGIC: He did not have any obvious nuchal rigidity. Upper extremity neurologic exam Consultation Report [facility] [address] [place]. [address] NAME: MAGGIE REDMAN : 42 STATUS : ADM IN [facility]#: [id number] AGE: 75 ADM/REG DATE : 06/19/16 MR#: [id number] REPORT SERV DATE: 06/22/16 DICTATED BY: KYLE VILLARREAL DATE: 06/22/16 REPORT STATUS : Draft TRANSCRIBED BY: MODL DATE: 06/22/16 appears to be grossly intact and normal. Lower extremity neurologic exam again appears to be grossly intact with motor strengths of 5/5. Reflexes are 1/4 but they are symmetrical. Toes are downgoing. No clonus is found. There is no sensory deficit in the upper or lower extremities. He does get rather severe pain with trying to turn himself in bed and also with percussion over the spinous processes in the midthoracic spine. Orthopedically in the lower extremities, he has no deformities. He has no pain with movement of hips, knees, or ankles. There are pulses in all four extremities. The MRI of the thoracic spine has been reviewed, and I agree with the interpretation with the radiologist. ASSESSMENT: Progressive osteomyelitis, diskitis, presumably E coli, T9-10. RECOMMENDATION: I think in the face of failed IV therapy and obvious MRI progression, he has no choice but to consider a surgical debridement and stabilization. I think this can all be done through a posterior extracavitary approach. This would include a complete laminectomy and facetectomy of T8 and T9. The pedicle of T9 would be removed. There would need to be a neurotomy of T8 and possibly T9 on the left side to gain access and a portion of the rib head would probably be removed. The disk is already obliterated. The entire area of the inferior half of the body of T8 and superior half of the body of T9 as well as the disk space would be debrided. Irrigation and debridement would be rather thorough and extensive. Once this was debrided, an interbody expandable cage would be placed to reestablish anterior column support. A posterior interbody fusion would also be carried out with some allograft and bone protein. Finally, re-stabilization would occur through posterior spinal fusion with segmental instrumentation, which would need to extend three levels above and below the area of infection. This would be from T5, T6, and T7 proximally and T10, T11, and T12 distally. This is obviously rather extensive surgery. The risks, benefits, alternatives, and expectations up to and including paralysis, quadriplegia, and even have been explained to the family. Also, he could get an incidental durotomy with subsequent meningitis and arachnoiditis. There is no guarantee that this will eradicate the infection, but I think it gives the best opportunity. The patient and the family have indicated they understand, they do want proceed, and they wish to proceed as soon as possible. He will have to be taken off the heparin therapy during surgery and restart it 24 hours after surgery. There is some risk of course including emboli, embolic phenomena that could result in stroke or even . Family indicates, the consent will be signed. BELEN/LUIS ENRIQUE Kyle Villarreal D.O. / [id number] Consultation Report [place] [id number] [facility] [place]. [address] NAME: FEROZMAGGIE KALINA : 42 STATUS : ADM IN [facility]#: [id number] AGE: 75 ADM/REG DATE : 06/19/16 MR#: [id number] REPORT SERV DATE: 06/22/16 DICTATED BY: KYLE VILLARREAL DATE: 06/22/16 REPORT STATUS : Draft TRANSCRIBED BY: MODL DATE: 06/22/16 CC: Tim Gutierrez M.D.
--- NOTE | ~2016-06-19 | DS ---
Discharge Summary [facility] [address] [place]. [address] NAME: MAGGIE REDMAN : 44 STATUS : DIS IN PAT#: [id number] AGE: 75 ADM/REG DATE : 06/19/16 MR#: [id number] REPORT SERV DATE: 06/28/16 DICTATED BY: JAY LE DATE: 06/27/16 REPORT STATUS : Draft TRANSCRIBED BY: MODL DATE: 06/27/16 ADMISSION DATE: 06/19/2016 DISCHARGE DATE: 06/27/2016 CONDITION ON DISCHARGE: Stable. [facility] DIAGNOSES ON DISCHARGE: 1. 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 The patient had been on IV meropenem per Infectious Disease and they have advised that IV meropenem be continued all the way through 08/03/2016. The patient has a PICC line for this. Arrangements have already been made for patient to receive IV meropenem through 08/03/2016, so he completes six weeks course of IV meropenem for the acute vertebral osteomyelitis. 2. Other problems that are chronic in this patient include chronic atrial fibrillation for which he is on Coumadin-his Coumadin has been restarted and currently he will be going to the rehab on his home dose of Coumadin. 3. Other medical history that is chronic and stable in this patient include history of ventral incisional hernia, status post partial gastric and small bowel resection, history of carcinoid tumor, obstructive sleep apnea, hypothyroidism, chronic atrial fibrillation on Coumadin, BPH, recurrent urinary tract infections, and mild dementia. BRIEF HOSPITAL COURSE: The patient is a very pleasant 75-year-old gentleman who was admitted with encephalopathy and intractable back pain with recent T9 diskitis. The patient was admitted for pain control and also was started on antibiotics after MRI of the thoracic spine revealed that the patient had a pyogenic osteomyelitis. ID was consulted and it was decided that the patient will go on IV meropenem. Soon after this, however, as Infectious Disease specialist felt that the source of infection had to be addressed, spinal surgeon, Dr. Villarreal, was contacted and the patient had to undergo vertebral debridement and laminectomy and discectomy for the same. The patient did well post surgically. MRI actually revealed diskitis at the T9 level. The patient has had problems with diskitis at this level in the past. His AFB cultures have come back negative in the past. However, at this time, a culture of the wound has revealed with no growth of organisms again and fungal culture is pending at this time. Anyway, the patient has done well with IV meropenem post surgery and has recovered well post laminectomy. Hence, he is being discharged to inpatient rehab for further rehab. As he was slightly confused after surgery, as he was even before surgery on presentation because of the infection and sepsis, I understand, an MRI of the brain was ordered also. MRI of the brain did not reveal any acute stroke or masses or hemorrhage, but did reveal some atrophy. MRI of the lumbar spine also came back with no significant or acute changes. It was the MRI thoracic spine where the problem was and patient had T8-T9 ongoing destruction with pyogenic diskitis. So patient is transferred to inpatient rehab and his most recent diagnostic tests are as follows: His CBC on the day of discharge shows WBC of 12.4, hemoglobin 10.8, Discharge Summary [address] [address] NAME: MAGGIE REDMAN : 42 STATUS : DIS IN PAT#: [id number] AGE: 75 ADM/REG DATE : 06/19/16 MR#: [id number] REPORT SERV DATE: 06/28/16 DICTATED BY: JAY LE DATE: 06/27/16 REPORT STATUS : Draft TRANSCRIBED BY: MODL DATE: 06/27/16 hematocrit of 31.4, platelet count of 308. INR is 1.6 on the day of discharge. However, he will be continued on his home dose of Coumadin and hopefully this will come back up to therapeutic INR between 2 and 3. His electrolytes show sodium 131, potassium 3.5, BUN 14, and creatinine 0.4. Blood cultures have come back with no growth at four days. Portable chest x-ray shows improving lung volumes with mild bibasilar atelectasis. The medications that he will be sent to rehab with include the following. For pain mainly, we are withholding all narcotics and benzodiazepines if possible. No IV narcotic medications; however, as patient does need something for pain, the very minimal dose of Percocet, which is a narcotic actually, will be given to him. Percocet 5/325 one p.o. q.6 hours p.r.n. for pain only. Other medications that he will be sent home on include the following: Colace 100 mg p.o. t.i.d., Coumadin 5 mg p.o. once a day, Cymbalta 30 mg once a day, Flomax 0.4 mg once a day, Florastor one capsule p.o. daily, folic acid 1 mg p.o. daily, 5% Lidoderm patch topically, Megace liquid, IV meropenem as mentioned above to be given through 08/03/2016, MiraLAX powder one packet once a day, Protonix 40 mg once a day, Rythmol 225 mg p.o. t.i.d. for the chronic atrial fibrillation, levothyroxine 88 mcg p.o. daily, multivitamin Theragran tablet one tablet p.o. daily, Zocor 20 mg p.o. daily. Hence the patient is being transferred in stable condition and I have spent about 40 minutes in coordinating discharge care of this patient including [id number] encounter and summarizing this discharge. KEVIN/LUIS ENRIQUE Jay Le M.D. / [id number]
--- NOTE | ~2016-06-19 | OP ---
Record Of Operation [facility] [address] [place]. [address] NAME: MAGGIE REDMAN : 42 STATUS : ADM IN PAT#: [id number] AGE: 75 ADM/REG DATE : 06/19/16 MR#: [id number] REPORT SERV DATE: 06/23/16 DICTATED BY: KYLE FLORES DATE: 06/23/16 REPORT STATUS : Draft TRANSCRIBED BY: MODL DATE: 06/23/16 DATE OF PROCEDURE: PREOPERATIVE DIAGNOSIS: T8-T9 osteomyelitis/diskitis. POSTOPERATIVE DIAGNOSIS: T8-T9 osteomyelitis/diskitis. PROCEDURES: 1. Microscopic and navigation-assisted surgery. 2. A complete laminectomy/facetectomy T8-T9, T9-T10. 3. Partial corpectomy, T8 and T9. 4. A transforaminal diskectomy. 5. Extra cavitary approach, left side, T8-T9. 6. Neurotomy, T8, left. 7. Irrigation and debridement of diskitis/osteomyelitis. 8. Interbody expandable cage, T8-T9. 9. Posterolateral interbody fusion, T8-T9. 10.Posterolateral spinal fusion with segmental Solera titanium instrumentation, T5-T12. SURGEON: Kyle Flores D.O. LACTATION SPECIALIST: Brock Rosales. ANESTHESIA: General. BLOOD LOSS: 600 mL. INDICATIONS FOR SURGERY: Listed in my consult note, see that for details. DESCRIPTION OF PROCEDURE: The patient was identified in the preop holding area, brought to the operative suite, general anesthetic including endotracheal intubation was administered. No antibiotics given until the cultures were obtained. The patient, after intubation of general anesthesia, had the scalp painted with Betadine solution and Smith 3-point fixation attached to the skull using 60 pounds torque in a standard position. The patient was then attached to the top portion of the Graeme spine frame, rotated 180 degrees into a prone position in a clamshell. All the bony prominences were carefully padded. The isolation drapes were placed, the thoracolumbar spine was scrubbed from the distal cervical spine to the bottom of the lumbar spine. With loupe magnification and headlight illumination, a midline incision was carried out from T4 to L1. The fascia was divided in the midline of the paraspinous muscles, subperiosteally elevated, and meticulous hemostasis obtained. A wide exposure was obtained all the way out to the transverse processes. Next, because of the need to stabilize the spine prior to the corpectomy, we attached the navigation registration frame to the spinous process, intraoperative CT scan with O-arm Record Of Operation [facility] [address] [place]. [address] NAME: MAGGIE REDMAN : 42 STATUS : ADM IN PAT#: [id number] AGE: 75 ADM/REG DATE : 06/19/16 MR#: [id number] REPORT SERV DATE: 06/23/16 DICTATED BY: KYLE FLORES DATE: 06/23/16 REPORT STATUS : Draft TRANSCRIBED BY: LUIS ENRIQUE DATE: 06/23/16 obtained, CT information used to register the navigational system. With navigational assistance, I placed a pilot boat captain hole through the pedicles of T10, T11, and T12 bilaterally. I decorticated the facet joints, and the polyaxial Solera titanium screws were placed at each of the levels indicated. Next, we replaced the registration frame, we re-registered the navigational system, and created pilot boat captain holes in the pedicles of T5, T6, and T7 bilaterally followed by decortication of the facet joints followed by placement of the polyaxial screws at T5, T6, and T7 bilaterally. A working corine was then placed on the right side. With the corine placed over the tulips of the pedicle screws, the set screws were inserted and tightened. Next, I carried out a complete laminectomy of T9 and T8. I removed the entire lamina. I removed the facet joint inferiorly and superiorly of T9. I removed the entire pedicle of T9. I then removed the lamina of T8, the inferior facet of T8, as well as removing a small portion of the rib head at T8-T9. The T8 and T9 exiting intercostal nerve roots were identified. I isolated the T8 nerve and tied off with 2-0 silk and a neurotomy was carried out to widen the space available. We did encounter an abscess as soon as we entered the interbody space at T8-T9 and cultures were taken. Antibiotics given. A complete diskectomy was carried out followed by debridement of the necrotic bone with a partial corpectomy of both T8 and T9. Wounds irrigated copiously. I then measured and placed an expandable 16 mm in diameter cage. The bone graft was packed anterior to the cage, and this was an allograft Magna Fuse. After the graft and the cage were placed, we then decorticated posteriorly and placed a second corine from T5 to T12 and tightened the implants. A posterior lateral fusion was carried out with Magna Fuse and the bone morphogenic protein from T5 to T12 bilaterally. Intraoperative CT scan was repeated showing excellent position of all implants, excellent decompression, and debridement, T8-T9. Vancomycin powder was placed in the wound. The myofascial layer was closed with double looped #1 PDS suture. Subcutaneous tissue closed with 2-0 Vicryl suture, and 2-0 vertical mattress nylon suture used for skin closure. Sterile dressings applied. The patient was returned to the supine position, awakened, extubated, taken to recovery room in satisfactory condition having tolerated the procedure well. BELEN/LUIS ENRIQUE Kyle Flores D.O. / [id number] CC: Ami Stiles M.D.
--- NOTE | ~2016-06-19 | HP ---
History And Physical [place] [address] [facility] [place]. [address] NAME: MAGGIE REDMAN : 44 STATUS : ADM IN PAT#: [id number] AGE: 75 ADM/REG DATE : 06/19/16 MR#: [id number] REPORT SERV DATE: 06/19/16 DICTATED BY: ASHLEY LESTER DATE: 06/19/16 REPORT STATUS : Draft TRANSCRIBED BY: MODL DATE: 06/19/16 DATE OF ADMISSION: 06/19/2016 CHIEF COMPLAINT: Intractable back pain and on and off confusion for 3 days, improving. HISTORY OF PRESENT ILLNESS: This is a very pleasant 75-year-old gentleman who has been recently admitted to [facility] and discharged after being diagnosed with spinal diskitis. He also has chronic atrial fibrillation, hypertension, hypothyroidism, who today presents to [facility] with some progressive continuing intractable back pain as well as intermittent confusion and progressive weakness. It is important to note that the patient's history started a couple of months ago with recurrent urinary tract infections. The patient ultimately developed some spinal diskitis that has been diagnosed and has been under the care of Dr. Enio Zhang, and he has been discharged home on home Invanz for a couple of more weeks under Dr. Zhang's recommendation. The patient has a history of chronic atrial fibrillation and BPH. 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 That surgery was then complicated by incisional hernia that required extensive surgery to repair several years ago but has been stable. No signs of infection. Again, as I said, a couple of weeks ago, he developed some back discomfort and fever. He saw Dr. Wayne who is his neighbor, found to have a urinary tract infection with E coli. He had been started with antibiotics, improved, fever resolved, but he has still continued to have some dysuria and pain, and as a result, he received some other antibiotics. However, because the symptoms never improved, Dr. Wayne ordered an MRI of the spine, and T8-T9 showed suspicious for diskitis, possible osteomyelitis. The patient had been admitted to Hospitalist Service at that time. He underwent a biopsy and was sent home with ertapenem. Since discharge, he has significant decreased appetite, continuing intractable back pain, and also an unsteady gait. His pain medication which according to the daughter was hydrocodone has been changed on by Dr. Raygoza to Roxicodone, and apparently after starting on Roxicodone, the patient has become more confused at times and more weak and shaking intermittently. His family stopped his Roxicodone yesterday. He took only Tylenol, and somehow, his confusion started to improve as well as his shaking, but due to persistence of the symptoms, they decided to bring him to [facility]. The patient has home health at home and has a PICC line for IV antibiotics which he is getting a couple more weeks. The patient and family deny any chest pain or shortness of breath. No PND or orthopnea. He does not have any night sweats. No nausea or vomiting. No diarrhea or constipation. He does not have any increased urinary frequency or urgency. No hematemesis or melena. No hematochezia. His white count is normal. His ESR is a little bit elevated. He has been evaluated in the emergency room, and after talking with Dr. Felix Cárdenas, the patient has been admitted to Hospitalist Service for further evaluation and treatment. PAST MEDICAL HISTORY: Significant for recurrent urinary tract infections; carcinoid tumor, status post partial gastric and small-bowel resection; ventral incisional hernia, status post repair; prior history of obstructive sleep apnea, noncompliant on CPAP; hypothyroidism; recent osteodiskitis of the thoracic spine; atrial fibrillation, on Coumadin; BPH; and a history of cholelithiasis. History And Physical [address] [address] NAME: MAGGIE REDMAN : 44 STATUS : ADM [facility]#: [id number] AGE: 75 ADM/REG DATE : 06/19/16 MR#: [id number] REPORT SERV DATE: 06/19/16 DICTATED BY: ASHLEY LESTER DATE: 06/19/16 REPORT STATUS : Draft TRANSCRIBED BY: MODL DATE: 06/19/16 PAST SURGICAL HISTORY: Include ventral hernia repair x3; carcinoid tumor removal; partial gastric and small bowel resection for carcinoid tumor. ALLERGIES: THE PATIENT IS ALLERGIC TO PROCAINE AND MORPHINE. FAMILY HISTORY: Significant for coronary artery disease and hypertension. HOME MEDICATIONS: Aspirin, Colace, Cymbalta, Invanz, Nexium, Synthroid, Lidoderm patch, magnesium oxide, Megace, Roxicodone, potassium chloride, Rythmol, Florastor, Zocor, Flomax, Restoril, and Coumadin. REVIEW OF SYSTEMS: A 14-point review of systems has been obtained, and pertinent positive has been listed into the history of present illness. Otherwise, negative except those underlying above. PHYSICAL EXAMINATION: VITAL SIGNS: The patient is currently afebrile. Blood pressure 135/75, heart rate 103, respiratory rate 14, saturating 97% on room air. GENERAL: He is a very pleasant, well-developed, well-nourished gentleman in no acute distress currently. He is alert and oriented x3. He is nonfocal. He follows all his commands appropriately. HEENT: Pupils equal, round, reactive to light. Extraocular movements intact. No JVD. No lymphadenopathy. No thyromegaly appreciated. CHEST: Bilateral air entry. Clear anteroposterior. Decreased breath sounds bibasilarly. No wheezes, crackles, or rhonchi appreciated. CARDIOVASCULAR: He is irregularly irregular. S1, S2 positive. No S3, no S4. No murmurs, rubs, or gallops appreciated. ABDOMEN: Soft with positive bowel sounds. Nontender. No guarding. No rebound. EXTREMITIES: No clubbing, cyanosis, or edema. MUSCULOSKELETAL: There is tenderness over the thoracic as well as lumbar spine. NEUROLOGY: Currently, the patient is alert and oriented x3. He has generalized weakness but nonfocal. He follows all his commands appropriately. LABORATORY DATA: Labs from today include sodium 132, potassium 3.7, chloride 98, CO2 of 27, BUN 9, creatinine 0.66, glucose is 112, calcium is 8.3, magnesium is 1.9. His troponin I is less than 0.02. His ammonia 28. Lactate 1.1. Also, white count 8, hemoglobin 10.5, hematocrit 30.9, and platelets are 272. His INR is 1.6. His UA has been negative. Blood cultures are currently pending. There was a CAT scan of the brain without contrast performed in the emergency room showing no acute CVA, stable mild diffuse cerebral involutional changes. ASSESSMENT AND PLAN: This is a very pleasant 75-year-old gentleman with: 1. Encephalopathy. 2. Recent T9 diskitis with intractable back pain. 3. Chronic atrial fibrillation, on anticoagulation. 4. History of gastroesophageal reflux disease. History And Physical [address] [place]. [address] NAME: MAGGIE REDMAN : 44 STATUS : ADM IN PAT#: [id number] AGE: 75 ADM/REG DATE : 06/19/16 MR#: [id number] REPORT SERV DATE: 06/19/16 DICTATED BY: ASHLEY LESTER DATE: 06/19/16 REPORT STATUS : Draft TRANSCRIBED BY: MODL DATE: 06/19/16 5. Hypothyroidism. 6. History of BPH. 7. History of hyperlipidemia. PLAN: 1. Encephalopathy. We will order an MRI of the brain. We will order a 2D echo and a carotid ultrasound. We will check on TSH, free T4, ammonia level, vitamin B12, and folic acid. Panculture him. Minimize sedation. We will check a set of cardiac enzymes, check a procalcitonin level, and blood cultures as well. 2. Intractable back pain with recent thoracic diskitis. We will continue his Invanz and vancomycin. Repeat an MRI of the thoracic and lumbar spine. We will re-culture him and consult Dr. Enio Zhang from Infectious Disease for further recommendation. 3. Chronic atrial fibrillation. Continue his home medications. Continue his Coumadin and consult Pharmacy for Coumadin dosing. 4. Hypothyroidism. We will continue his home medications. 5. BPH. We will continue his home medication. 6. Hyperlipidemia. We will continue his home medications. We are going to provide reasonable pain and nausea control and minimize sedation as well as GI and DVT prophylaxis. That has been discussed extensively with the patient as well as the patient's daughter. All the questions have been answered in full. The patient wishes to remain a full code according to patient wishes well stated. It is also to note that the patient is going to be followed up by Dr. Kunal Alvarez here. CF/MODL Ashley Lester M.D. / [id number] CC: Tim León M.D.
[~2016-06-19 17:49] MED LIST changes: +D.O.S.100 MG PO; +FLOMAX4 PO; +FLORASTOR250 MG PO; +INVANZ1 G1 IV; +KDUR10 PO; +LIDODERM TOP; +MEGA625UDL PO; +NEXIUM20 M1 PO; +NORCO1 TA2 PO; +ROXICODONE IR PO; +SYN88 PO; +TORATAB PO; +ULTRAM50 PO
[2016-06-19] MEDS ORDERED: C1 PO (18:26)
[2016-06-19] MEDS ORDERED: ROXICODONE15 MG PO (18:27)
[2016-06-19] MEDS ORDERED: CYMBALTA30 PO (18:27)
[2016-06-19 18:34] LABS: BASOPHILS 0.1 %; BASOPHILS ABSOLUTE 0.01 10/3/uL (0.0-0.16); EOSINOPHILS 0.4 %; EOSINOPHILS ABSOLUTE 0.03 10/3/uL (0.0-0.53); HEMOGLOBIN 10.5 g/dL (13.6-17.8); IMMATURE GRANULOCYTES 0.4 %; IMMATURE GRANULOCYTES ABSOLUTE 0.03 10/3/uL (0.0-0.11); LYMPHOCYTES ABSOLUTE 1.27 10/3/uL (0.67-4.30); MEAN CORPUSCULAR HEMOGLOB 24.8 pg (26.0-34.0); MEAN CORPUSCULAR VOLUME 72.9 fL (80-100); MEAN PLATELET VOLUME 8.2 fL (9.2-13.0); MONOCYTES 8.9 %; MONOCYTES ABSOLUTE 0.71 10/3/uL (0.21-1.20); NEUTROPHILS 74.2 %; PLATELET COUNT 272 10/3/uL (150-400); RBC DISTRIBUTION WIDTH 18.5 % (12.0-16.0); RED CELL COUNT 4.24 10/6/uL (4.7-6.1)
[2016-06-19 18:35] LABS: HEMATOCRIT 30.9 % (40.0-51.0); MANUAL DIFF NO %
[2016-06-19 18:40] LABS: ASCORBIC ACID (UR NOT ORDER) NEG (NEG); BILIRUBIN, URINE NEGATIVE (NEG); ER URINALYSIS TAT 0 Hrs 18 Mins; KETONE, URINE NEGATIVE (NEG); LEUKOCYTE ESTERASE(NOT OR NEG (NEG); NITRITE (URINE) NEG (NEG); WBC (NOT ORDERED) (RFLEX) 1 (0-5)
[2016-06-19 18:43] LABS: INTERNATIONAL NORMAL RATI 1.6 UNITS (-)
[2016-06-19 18:44] LABS: PARTIAL THROMBO TIME 41.2 SEC (22.5-37.2)
[2016-06-19 18:50] LABS: CALCIUM, SERUM 8.3 MG/DL (8.5-10.4); CHEST PAIN PROFILE TAT 0 Hrs 22 Mins; CHLORIDE, SERUM 98 MMOL/L (96-112); CO2 (CARBON DIOXIDE) 27 MMOL/L (24-34); CREATININE 0.66 MG/DL (0.70-1.30); GFR AFRICAN AMERICAN 111 ML/MIN (>=60); GFR NON AFRICAN AMERICAN 96 ML/MIN (>=60); GLUCOSE, SERUM 112 MG/DL (60-99); POTASSIUM, SERUM 3.7 MMOL/L (3.5-5.3); SODIUM, SERUM 132 MMOL/L (135-148); TROPONIN I <0.02 NG/ML (<0.05)
[2016-06-19 18:51] LABS: BUN (BLOOD UREA NITROGEN) 9 MG/DL (6-23)
[2016-06-19 18:52] LABS: PROTIME (NOT ORD) 18.8 SEC (12.0-14.5)
[2016-06-19 19:11] LABS: LACTATE 1.1 MMOL/L (0.3-2.4)
[2016-06-19 19:36] LABS: C-REACTIVE PROTEIN 79.8 MG/L (<8.0)
[2016-06-19 22:16] LABS: PROCALCITONIN 0.14 ng/mL (<0.5)
[2016-06-20 02:19] LABS: BASOPHILS 0.1 %; BASOPHILS ABSOLUTE 0.01 10/3/uL (0.0-0.16); EOSINOPHILS 0.4 %; EOSINOPHILS ABSOLUTE 0.03 10/3/uL (0.0-0.53); HEMATOCRIT 30.6 % (40.0-51.0); HEMOGLOBIN 10.5 g/dL (13.6-17.8); IMMATURE GRANULOCYTES 0.6 %; IMMATURE GRANULOCYTES ABSOLUTE 0.05 10/3/uL (0.0-0.11); LYMPHOCYTES 12.3 %; LYMPHOCYTES ABSOLUTE 0.98 10/3/uL (0.67-4.30); MEAN CORPUS HGB CONC 34.3 g/dL (32.0-36.0); MEAN CORPUSCULAR HEMOGLOB 24.7 pg (26.0-34.0); MEAN PLATELET VOLUME 8.1 fL (9.2-13.0); MONOCYTES 8.4 %; MONOCYTES ABSOLUTE 0.67 10/3/uL (0.21-1.20); NEUTROPHILS 78.2 %; NEUTROPHILS ABSOLUTE 6.23 10/3/uL (2.02-8.40); PLATELET COUNT 278 10/3/uL (150-400); RBC DISTRIBUTION WIDTH 18.6 % (12.0-16.0); RED CELL COUNT 4.25 10/6/uL (4.7-6.1)
[2016-06-20 02:21] LABS: MANUAL DIFF NO %
[2016-06-20 02:29] LABS: INTERNATIONAL NORMAL RATI 1.6 UNITS (-); PARTIAL THROMBO TIME 48.4 SEC (22.5-37.2); PROTIME (NOT ORD) 19.1 SEC (12.0-14.5)
[2016-06-20 02:55] LABS: A/G RATIO 0.5 (0.7-1.9); ALBUMIN 2.2 G/DL (3.5-5.0); ALKALINE PHOSPHATASE 123 U/L (45-117); BUN (BLOOD UREA NITROGEN) 10 MG/DL (6-23); CHLORIDE, SERUM 100 MMOL/L (96-112); CO2 (CARBON DIOXIDE) 24 MMOL/L (24-34); CREATININE 0.59 MG/DL (0.70-1.30); FREE T4 1.63 NG/DL (0.76-1.46); GFR AFRICAN AMERICAN 116 ML/MIN (>=60); GFR NON AFRICAN AMERICAN 100 ML/MIN (>=60); GLOBULIN 4.6 G/DL (2.5-4.1); GLUCOSE, SERUM 101 MG/DL (60-99); PHOSPHORUS, SERUM 2.7 MG/DL (2.5-4.5); POTASSIUM, SERUM 3.7 MMOL/L (3.5-5.3); SGOT(AST) 20 U/L (5-40); SGPT(ALT) 22 U/L (5-65); SODIUM, SERUM 134 MMOL/L (135-148); TOTAL BILIRUBIN 0.6 MG/DL (0-1.2); TOTAL PROTEIN 6.8 G/DL (6.0-8.5); TROPONIN I <0.02 NG/ML (<0.05)
[2016-06-20 03:09] LABS: SED RATE 48 MM/HR (0-15)
[2016-06-20 16:14] LABS: BASOPHILS 0.1 %; BASOPHILS ABSOLUTE 0.01 10/3/uL (0.0-0.16); EOSINOPHILS 0.7 %; EOSINOPHILS ABSOLUTE 0.05 10/3/uL (0.0-0.53); HEMATOCRIT 30.4 % (40.0-51.0); HEMOGLOBIN 10.6 g/dL (13.6-17.8); IMMATURE GRANULOCYTES 0.8 %; IMMATURE GRANULOCYTES ABSOLUTE 0.06 10/3/uL (0.0-0.11); LYMPHOCYTES ABSOLUTE 1.04 10/3/uL (0.67-4.30); MEAN CORPUS HGB CONC 34.9 g/dL (32.0-36.0); MEAN CORPUSCULAR HEMOGLOB 25.2 pg (26.0-34.0); MEAN CORPUSCULAR VOLUME 72.4 fL (80-100); MEAN PLATELET VOLUME 7.9 fL (9.2-13.0); MONOCYTES 8.7 %; MONOCYTES ABSOLUTE 0.65 10/3/uL (0.21-1.20); NEUTROPHILS 75.7 %; NEUTROPHILS ABSOLUTE 5.62 10/3/uL (2.02-8.40); PLATELET COUNT 250 10/3/uL (150-400); RBC DISTRIBUTION WIDTH 18.6 % (12.0-16.0); WHITE BLOOD CELLS 7.4 10/3/uL (4.5-10.5)
[2016-06-20 16:15] LABS: MANUAL DIFF NO %
[2016-06-20 16:29] LABS: BUN (BLOOD UREA NITROGEN) 8 MG/DL (6-23); CHLORIDE, SERUM 102 MMOL/L (96-112); CO2 (CARBON DIOXIDE) 23 MMOL/L (24-34); GFR AFRICAN AMERICAN 116 ML/MIN (>=60); GFR NON AFRICAN AMERICAN 100 ML/MIN (>=60); GLUCOSE, SERUM 123 MG/DL (60-99); PHOSPHORUS, SERUM 2.5 MG/DL (2.5-4.5); POTASSIUM, SERUM 3.5 MMOL/L (3.5-5.3); SODIUM, SERUM 136 MMOL/L (135-148)
[2016-06-21 06:23] LABS: INTERNATIONAL NORMAL RATI 1.9 UNITS (-); PROTIME (NOT ORD) 21.7 SEC (12.0-14.5)
[2016-06-21 11:02] LABS: BASOPHILS 0.1 %; BASOPHILS ABSOLUTE 0.01 10/3/uL (0.0-0.16); EOSINOPHILS 1.2 %; EOSINOPHILS ABSOLUTE 0.09 10/3/uL (0.0-0.53); HEMATOCRIT 29.8 % (40.0-51.0); HEMOGLOBIN 10.3 g/dL (13.6-17.8); IMMATURE GRANULOCYTES 0.7 %; IMMATURE GRANULOCYTES ABSOLUTE 0.05 10/3/uL (0.0-0.11); LYMPHOCYTES 15.3 %; MEAN CORPUS HGB CONC 34.6 g/dL (32.0-36.0); MEAN CORPUSCULAR HEMOGLOB 25.1 pg (26.0-34.0); MEAN CORPUSCULAR VOLUME 72.7 fL (80-100); MEAN PLATELET VOLUME 8.2 fL (9.2-13.0); MONOCYTES 10.5 %; MONOCYTES ABSOLUTE 0.76 10/3/uL (0.21-1.20); NEUTROPHILS 72.2 %; PLATELET COUNT 300 10/3/uL (150-400); RBC DISTRIBUTION WIDTH 18.8 % (12.0-16.0); WHITE BLOOD CELLS 7.2 10/3/uL (4.5-10.5)
[2016-06-21 11:03] LABS: MANUAL DIFF NO %
[2016-06-22 05:27] LABS: BASOPHILS 0.4 %; BASOPHILS ABSOLUTE 0.02 10/3/uL (0.0-0.16); EOSINOPHILS 1.2 %; EOSINOPHILS ABSOLUTE 0.07 10/3/uL (0.0-0.53); HEMATOCRIT 30.7 % (40.0-51.0); HEMOGLOBIN 10.5 g/dL (13.6-17.8); IMMATURE GRANULOCYTES 1.2 %; IMMATURE GRANULOCYTES ABSOLUTE 0.07 10/3/uL (0.0-0.11); LYMPHOCYTES 24.2 %; LYMPHOCYTES ABSOLUTE 1.37 10/3/uL (0.67-4.30); MANUAL DIFF NO %; MEAN CORPUS HGB CONC 34.2 g/dL (32.0-36.0); MEAN CORPUSCULAR HEMOGLOB 24.8 pg (26.0-34.0); MEAN CORPUSCULAR VOLUME 72.6 fL (80-100); MONOCYTES 9.7 %; MONOCYTES ABSOLUTE 0.55 10/3/uL (0.21-1.20); NEUTROPHILS 63.3 %; NEUTROPHILS ABSOLUTE 3.58 10/3/uL (2.02-8.40); PLATELET COUNT 309 10/3/uL (150-400); RBC DISTRIBUTION WIDTH 18.8 % (12.0-16.0); RED CELL COUNT 4.23 10/6/uL (4.7-6.1); WHITE BLOOD CELLS 5.7 10/3/uL (4.5-10.5)
[2016-06-22 05:39] LABS: INTERNATIONAL NORMAL RATI 2.2 UNITS (-); PROTIME (NOT ORD) 24.5 SEC (12.0-14.5)
[2016-06-22 05:48] LABS: BUN (BLOOD UREA NITROGEN) 8 MG/DL (6-23); CALCIUM, SERUM 8.1 MG/DL (8.5-10.4); CHLORIDE, SERUM 101 MMOL/L (96-112); CO2 (CARBON DIOXIDE) 24 MMOL/L (24-34); GFR AFRICAN AMERICAN 116 ML/MIN (>=60); GFR NON AFRICAN AMERICAN 100 ML/MIN (>=60); GLUCOSE, SERUM 99 MG/DL (60-99); POTASSIUM, SERUM 3.4 MMOL/L (3.5-5.3); SODIUM, SERUM 134 MMOL/L (135-148)
[2016-06-22 19:12] LABS: INTERNATIONAL NORMAL RATI 2.1 UNITS (-); PARTIAL THROMBO TIME 58.8 SEC (22.5-37.2); PROTIME (NOT ORD) 23.3 SEC (12.0-14.5)
[2016-06-22 21:24] LABS: INTERNATIONAL NORMAL RATI 1.6 UNITS (-); PARTIAL THROMBO TIME 39.5 SEC (22.5-37.2); PROTIME (NOT ORD) 18.7 SEC (12.0-14.5)
[2016-06-22 21:32] LABS: HEMATOCRIT 22.8 % (40.0-51.0); HEMOGLOBIN 7.7 g/dL (13.6-17.8)
[2016-06-22 23:44] LABS: BASOPHILS 0.1 %; BASOPHILS ABSOLUTE 0.01 10/3/uL (0.0-0.16); EOSINOPHILS 0.4 %; EOSINOPHILS ABSOLUTE 0.03 10/3/uL (0.0-0.53); HEMATOCRIT 28.8 % (40.0-51.0); HEMOGLOBIN 9.9 g/dL (13.6-17.8); IMMATURE GRANULOCYTES 1.3 %; IMMATURE GRANULOCYTES ABSOLUTE 0.09 10/3/uL (0.0-0.11); MANUAL DIFF NO %; MEAN CORPUS HGB CONC 34.4 g/dL (32.0-36.0); MEAN CORPUSCULAR HEMOGLOB 25.6 pg (26.0-34.0); MEAN CORPUSCULAR VOLUME 74.6 fL (80-100); MEAN PLATELET VOLUME 7.8 fL (9.2-13.0); MONOCYTES 1.3 %; MONOCYTES ABSOLUTE 0.09 10/3/uL (0.21-1.20); NEUTROPHILS 84.9 %; NEUTROPHILS ABSOLUTE 5.65 10/3/uL (2.02-8.40); PLATELET COUNT 251 10/3/uL (150-400); RBC DISTRIBUTION WIDTH 18.8 % (12.0-16.0); RED CELL COUNT 3.86 10/6/uL (4.7-6.1); WHITE BLOOD CELLS 6.7 10/3/uL (4.5-10.5)
[2016-06-23] LABS: BUN (BLOOD UREA NITROGEN) 8 MG/DL (6-23); CALCIUM, SERUM 8.5 MG/DL (8.5-10.4); CHLORIDE, SERUM 105 MMOL/L (96-112); CO2 (CARBON DIOXIDE) 24 MMOL/L (24-34); CREATININE 0.71 MG/DL (0.70-1.30); GFR AFRICAN AMERICAN 108 ML/MIN (>=60); GFR NON AFRICAN AMERICAN 93 ML/MIN (>=60); SODIUM, SERUM 139 MMOL/L (135-148)
[2016-06-23 00:02] LABS: GLUCOSE, SERUM 128 MG/DL (60-99)
[2016-06-23 03:50] LABS: BASOPHILS 0 %; EOSINOPHILS 0 %; HEMATOCRIT 29.7 % (40.0-51.0); HEMOGLOBIN 10.2 g/dL (13.6-17.8); IMMATURE GRANULOCYTES 0.7 %; IMMATURE GRANULOCYTES ABSOLUTE 0.06 10/3/uL (0.0-0.11); LYMPHOCYTES 5.9 %; LYMPHOCYTES ABSOLUTE 0.51 10/3/uL (0.67-4.30); MEAN CORPUS HGB CONC 34.3 g/dL (32.0-36.0); MEAN CORPUSCULAR HEMOGLOB 25.6 pg (26.0-34.0); MEAN CORPUSCULAR VOLUME 74.4 fL (80-100); MONOCYTES 2.7 %; MONOCYTES ABSOLUTE 0.23 10/3/uL (0.21-1.20); NEUTROPHILS 90.7 %; NEUTROPHILS ABSOLUTE 7.82 10/3/uL (2.02-8.40); PLATELET COUNT 269 10/3/uL (150-400); RBC DISTRIBUTION WIDTH 18.7 % (12.0-16.0); RED CELL COUNT 3.99 10/6/uL (4.7-6.1); WHITE BLOOD CELLS 8.6 10/3/uL (4.5-10.5)
[2016-06-23 03:51] LABS: MANUAL DIFF NO %
[2016-06-23 04:12] LABS: BUN (BLOOD UREA NITROGEN) 8 MG/DL (6-23); CALCIUM, SERUM 8.3 MG/DL (8.5-10.4); CHLORIDE, SERUM 104 MMOL/L (96-112); CO2 (CARBON DIOXIDE) 24 MMOL/L (24-34); CREATININE 0.63 MG/DL (0.70-1.30); GFR AFRICAN AMERICAN 113 ML/MIN (>=60); GFR NON AFRICAN AMERICAN 98 ML/MIN (>=60); POTASSIUM, SERUM 3.9 MMOL/L (3.5-5.3); SODIUM, SERUM 140 MMOL/L (135-148)
[2016-06-23 04:15] LABS: GLUCOSE, SERUM 159 MG/DL (60-99)
[2016-06-24 05:35] LABS: ALBUMIN 2.1 G/DL (3.5-5.0); BUN (BLOOD UREA NITROGEN) 11 MG/DL (6-23); CALCIUM, SERUM 8.2 MG/DL (8.5-10.4); CHLORIDE, SERUM 98 MMOL/L (96-112); CO2 (CARBON DIOXIDE) 27 MMOL/L (24-34); CREATININE 0.56 MG/DL (0.70-1.30); GFR AFRICAN AMERICAN 119 ML/MIN (>=60); GFR NON AFRICAN AMERICAN 103 ML/MIN (>=60); PHOSPHORUS, SERUM 2.2 MG/DL (2.5-4.5); POTASSIUM, SERUM 3.8 MMOL/L (3.5-5.3)
[2016-06-24 05:38] LABS: BUN (BLOOD UREA NITROGEN) 11 MG/DL (6-23); CALCIUM, SERUM 8.4 MG/DL (8.5-10.4); CHLORIDE, SERUM 98 MMOL/L (96-112); CO2 (CARBON DIOXIDE) 27 MMOL/L (24-34); CREATININE 0.54 MG/DL (0.70-1.30); GFR AFRICAN AMERICAN 121 ML/MIN (>=60); GFR NON AFRICAN AMERICAN 104 ML/MIN (>=60); POTASSIUM, SERUM 3.8 MMOL/L (3.5-5.3)
[2016-06-24 05:49] LABS: GLUCOSE, SERUM 110 MG/DL (60-99); SODIUM, SERUM 132 MMOL/L (135-148)
[2016-06-24 05:52] LABS: GLUCOSE, SERUM 112 MG/DL (60-99); SODIUM, SERUM 133 MMOL/L (135-148)
[2016-06-24 05:56] LABS: BASOPHILS 0 %; EOSINOPHILS 0 %; HEMATOCRIT 30.3 % (40.0-51.0); HEMOGLOBIN 10.3 g/dL (13.6-17.8); IMMATURE GRANULOCYTES 0.8 %; IMMATURE GRANULOCYTES ABSOLUTE 0.08 10/3/uL (0.0-0.11); LYMPHOCYTES 12.5 %; LYMPHOCYTES ABSOLUTE 1.31 10/3/uL (0.67-4.30); MANUAL DIFF NO %; MEAN CORPUSCULAR HEMOGLOB 25.4 pg (26.0-34.0); MEAN CORPUSCULAR VOLUME 74.6 fL (80-100); MONOCYTES ABSOLUTE 0.94 10/3/uL (0.21-1.20); NEUTROPHILS 77.7 %; NEUTROPHILS ABSOLUTE 8.14 10/3/uL (2.02-8.40); PLATELET COUNT 318 10/3/uL (150-400); RBC DISTRIBUTION WIDTH 18.9 % (12.0-16.0); RED CELL COUNT 4.06 10/6/uL (4.7-6.1); WHITE BLOOD CELLS 10.5 10/3/uL (4.5-10.5)
[2016-06-25 06:32] LABS: BASOPHILS 0.2 %; BASOPHILS ABSOLUTE 0.02 10/3/uL (0.0-0.16); EOSINOPHILS 1.2 %; EOSINOPHILS ABSOLUTE 0.13 10/3/uL (0.0-0.53); HEMATOCRIT 33.4 % (40.0-51.0); HEMOGLOBIN 11.5 g/dL (13.6-17.8); IMMATURE GRANULOCYTES 0.7 %; IMMATURE GRANULOCYTES ABSOLUTE 0.07 10/3/uL (0.0-0.11); LYMPHOCYTES 17.6 %; LYMPHOCYTES ABSOLUTE 1.84 10/3/uL (0.67-4.30); MANUAL DIFF NO %; MEAN CORPUS HGB CONC 34.4 g/dL (32.0-36.0); MEAN CORPUSCULAR HEMOGLOB 25.7 pg (26.0-34.0); MEAN CORPUSCULAR VOLUME 74.6 fL (80-100); MEAN PLATELET VOLUME 8.1 fL (9.2-13.0); MONOCYTES 9.8 %; MONOCYTES ABSOLUTE 1.02 10/3/uL (0.21-1.20); NEUTROPHILS 70.5 %; NEUTROPHILS ABSOLUTE 7.35 10/3/uL (2.02-8.40); PLATELET COUNT 330 10/3/uL (150-400); RBC DISTRIBUTION WIDTH 18.8 % (12.0-16.0); RED CELL COUNT 4.48 10/6/uL (4.7-6.1); WHITE BLOOD CELLS 10.4 10/3/uL (4.5-10.5)
[2016-06-25 06:40] LABS: INTERNATIONAL NORMAL RATI 1.6 UNITS (-); PROTIME (NOT ORD) 18.9 SEC (12.0-14.5)
[2016-06-25 06:42] LABS: BUN (BLOOD UREA NITROGEN) 12 MG/DL (6-23); CALCIUM, SERUM 8.1 MG/DL (8.5-10.4); CHLORIDE, SERUM 97 MMOL/L (96-112); CO2 (CARBON DIOXIDE) 27 MMOL/L (24-34); CREATININE 0.55 MG/DL (0.70-1.30); GFR AFRICAN AMERICAN 120 ML/MIN (>=60); GFR NON AFRICAN AMERICAN 103 ML/MIN (>=60); GLUCOSE, SERUM 94 MG/DL (60-99); POTASSIUM, SERUM 3.8 MMOL/L (3.5-5.3); SODIUM, SERUM 132 MMOL/L (135-148)
[2016-06-26 05:21] LABS: BASOPHILS 0.2 %; BASOPHILS ABSOLUTE 0.02 10/3/uL (0.0-0.16); EOSINOPHILS 1.9 %; EOSINOPHILS ABSOLUTE 0.24 10/3/uL (0.0-0.53); HEMATOCRIT 33.2 % (40.0-51.0); HEMOGLOBIN 11.6 g/dL (13.6-17.8); IMMATURE GRANULOCYTES 0.9 %; IMMATURE GRANULOCYTES ABSOLUTE 0.12 10/3/uL (0.0-0.11); LYMPHOCYTES ABSOLUTE 1.67 10/3/uL (0.67-4.30); MEAN CORPUS HGB CONC 34.9 g/dL (32.0-36.0); MEAN CORPUSCULAR HEMOGLOB 25.8 pg (26.0-34.0); MEAN CORPUSCULAR VOLUME 73.8 fL (80-100); MEAN PLATELET VOLUME 8.2 fL (9.2-13.0); MONOCYTES 8.5 %; MONOCYTES ABSOLUTE 1.09 10/3/uL (0.21-1.20); NEUTROPHILS 75.5 %; NEUTROPHILS ABSOLUTE 9.75 10/3/uL (2.02-8.40); PLATELET COUNT 340 10/3/uL (150-400); WHITE BLOOD CELLS 12.9 10/3/uL (4.5-10.5)
[2016-06-26 05:25] LABS: MANUAL DIFF NO %
[2016-06-26 05:31] LABS: INTERNATIONAL NORMAL RATI 1.5 UNITS (-)
[2016-06-26 05:33] LABS: CALCIUM, SERUM 8.2 MG/DL (8.5-10.4); CHLORIDE, SERUM 96 MMOL/L (96-112); CO2 (CARBON DIOXIDE) 25 MMOL/L (24-34); CREATININE 0.55 MG/DL (0.70-1.30); GFR AFRICAN AMERICAN 120 ML/MIN (>=60); GFR NON AFRICAN AMERICAN 103 ML/MIN (>=60); GLUCOSE, SERUM 105 MG/DL (60-99); POTASSIUM, SERUM 3.5 MMOL/L (3.5-5.3); SODIUM, SERUM 130 MMOL/L (135-148)
[2016-06-26 05:34] LABS: BUN (BLOOD UREA NITROGEN) 16 MG/DL (6-23)
[2016-06-27 07:01] LABS: BASOPHILS 0.2 %; BASOPHILS ABSOLUTE 0.02 10/3/uL (0.0-0.16); EOSINOPHILS 2.2 %; EOSINOPHILS ABSOLUTE 0.27 10/3/uL (0.0-0.53); HEMATOCRIT 31.4 % (40.0-51.0); HEMOGLOBIN 10.8 g/dL (13.6-17.8); IMMATURE GRANULOCYTES ABSOLUTE 0.12 10/3/uL (0.0-0.11); LYMPHOCYTES 12.1 %; MEAN CORPUS HGB CONC 34.4 g/dL (32.0-36.0); MEAN CORPUSCULAR HEMOGLOB 25.5 pg (26.0-34.0); MEAN CORPUSCULAR VOLUME 74.1 fL (80-100); MEAN PLATELET VOLUME 7.8 fL (9.2-13.0); MONOCYTES 7.8 %; MONOCYTES ABSOLUTE 0.97 10/3/uL (0.21-1.20); NEUTROPHILS 76.7 %; NEUTROPHILS ABSOLUTE 9.54 10/3/uL (2.02-8.40); PLATELET COUNT 308 10/3/uL (150-400); RBC DISTRIBUTION WIDTH 18.8 % (12.0-16.0); RED CELL COUNT 4.24 10/6/uL (4.7-6.1); WHITE BLOOD CELLS 12.4 10/3/uL (4.5-10.5)
[2016-06-27 07:02] LABS: MANUAL DIFF NO %
[2016-06-27 07:05] LABS: INTERNATIONAL NORMAL RATI 1.6 UNITS (-)
[2016-06-27 07:13] LABS: BUN (BLOOD UREA NITROGEN) 14 MG/DL (6-23); CALCIUM, SERUM 7.8 MG/DL (8.5-10.4); CHLORIDE, SERUM 97 MMOL/L (96-112); CO2 (CARBON DIOXIDE) 26 MMOL/L (24-34); CREATININE 0.47 MG/DL (0.70-1.30); GFR AFRICAN AMERICAN 128 ML/MIN (>=60); GFR NON AFRICAN AMERICAN 110 ML/MIN (>=60); GLUCOSE, SERUM 102 MG/DL (60-99); POTASSIUM, SERUM 3.5 MMOL/L (3.5-5.3); SODIUM, SERUM 131 MMOL/L (135-148)
== END 2016-06-27 18:03 | DRG 456 ==
LOC: ER 17:49 → 6NO 21:23 → MIC 06-23 00:34 → 7NO 06-23 18:04
PROVIDERS: Emergency Medicine; Hospitalist; Internal Medicine; Internal Medicine Critical Care Medicine; Orthopaedic Surgery Orthopaedic Surgery of the Spine
PROC: 30233K1 Transfusion of Nonautologous Frozen Plasma into Peripheral Vein, Percutaneous Approach (ICD-10-PCS; 2016-06-22)
PROC: 30233N1 Transfusion of Nonautologous Red Blood Cells into Peripheral Vein, Percutaneous Approach (ICD-10-PCS; 2016-06-22)
PROC: [UNRECOGNIZED PROCEDURE] (principal; 2016-06-23)
PROC: 0RT90ZZ Resection of Thoracic Vertebral Disc, Open Approach (ICD-10-PCS; 2016-06-23)
PROC: 0RG60AJ Fusion of Thoracic Vertebral Joint with Interbody Fusion Device, Posterior Approach, Anterior Column, Open Approach (ICD-10-PCS; 2016-06-23)
PROC: 0RB60ZZ Excision of Thoracic Vertebral Joint, Open Approach (ICD-10-PCS; 2016-06-23)
PROC: 4A1134G Monitoring of Peripheral Nervous Electrical Activity, Intraoperative, Percutaneous Approach (ICD-10-PCS; 2016-06-23)
DX: M46.24 Osteomyelitis of vertebra, thoracic region (principal); G93.40 Encephalopathy, unspecified; D62 Acute posthemorrhagic anemia; M46.34 Infection of intervertebral disc (pyogenic), thoracic region; I48.2 Chronic atrial fibrillation; M54.9 Dorsalgia, unspecified; E03.9 Hypothyroidism, unspecified; B96.20 Unspecified Escherichia coli [E. coli] as the cause of diseases classified elsewhere; N40.0 Benign prostatic hyperplasia without lower urinary tract symptoms; F32.9 Major depressive disorder, single episode, unspecified; E78.5 Hyperlipidemia, unspecified; K59.03 Drug induced constipation; T40.605A Adverse effect of unspecified narcotics, initial encounter; Z87.440 Personal history of urinary (tract) infections; Z90.49 Acquired absence of other specified parts of digestive tract; Z79.01 Long term (current) use of anticoagulants; Z85.020 Personal history of malignant carcinoid tumor of stomach
CPT/HCPCS: 36415; 70450; 70551; 71010; 72146; 72148; 80048; 80053; 80069; 81001; 82140; 82607; 82746; 82962; 83036; 83605; 83615; 83735; 84100; 84145; 84439; 84443; 84484; 85014; 85018; 85025; 85027; 85610; 85652; 85730; 86140; 86850; 86900; 86901; 86920; 87015; 87040; 87070; 87075; 87102; 87116; 87205; 87641; 88304; 88311; 93005; 93880; 96374; 97110-GP; 97116-GP; 97161-GP; 99285; A9270-GY; C1713; C1768; C8929; G8978-CK-GP; G8979-CI-GP; J0690; J1170; J1335; J1644; J2185; J2250; J2370; J2405; J3010; J3370; P9016; P9045; P9059; Q9957